=== PATIENT | female | born 1950 | race Caucasian/White ===

== ENCOUNTER 2017-02-21 11:47 | Observation (INO) | payer MEDICARE ==
[2017-02-21] MEDS ORDERED: ONDANSETRON HCL/PF 2 MG/ML VIAL IV ONE ×2 (12:55→17:27)
--- NOTE | 2017-02-21 12:58 | ERNOTE ---
Medical Problem HPI - Narrative Date of Service: 02/21/17 - General Chief Complaint: Nausea/Vomiting Time Seen by Provider: 02/21/17 12:37 Source: patient Exam Limitations: no limitations - Immun/Allergies/Home Medications Immunizations: IMMUNIZATION HX Immunizations Up to Date Yes History of Influenza Vaccine Yes Hx Pneumococcal Vaccination Yes Allergies/Adverse Reactions: Allergies venom-honey bee [bee venom (honey bee)] Allergy (Mild, Verified 02/21/17 12:03) Hives morphine Adverse Reaction (Intermediate, Verified 02/21/17 12:03) HALLUCINATIONS sulfadiazine [Sulfadiazine] Adverse Reaction (Mild, Verified 02/21/17 12:03) rash Home Medications: HOME MEDICATIONS Citalopram Hydrobromide [Celexa] 40 mg PO HS 09/27/12 [Last Taken 10/21/13] traMADol HCL [Ultram] 50 mg PO TID PRN 06/14/14 [Last Taken Unknown] Levothyroxine Sodium [Synthroid] 50 mcg PO DAILY 04/26/15 [Last Taken Unknown] Cyclosporine [Restasis Multidose] 1 drop OP DAILY 01/17/17 [Last Taken Unknown] - History of Present History Narrative: Pt is a 66 year old with complaints of nausea and diarrhea. Pt states Friday she was up cleaning the house and all of the sudden felt dizzy and nauseated then laid down and felt better. Pt then continued to clean and started feeling sick again. She states yesterday she felt fine but at 3:40am she started dry heaving and has had "alot alot alot of diarrhea." Pt states she had a surgery to where she cannot vomit. Pt states hx of bowel obstruction which have required surgical intervention, but this does not feel like that. Denies any recent travel or sick contacts, dysuria, blood in stool or urine. Endorses epigastric and lower abdominal pain- no radiation present, and chills. Has not taken anything for symptoms prior to arrival and nothing makes symptoms better or worse. Date (Duration): 02/19/17 Time (Timing): 13:00 Timing: intermittent Severity: moderate Review of Systems - Review of Systems Constitutional: Present: fever, chills, weakness, fatigue. Absent: recent illness, diaphoresis, weight loss Respiratory: Absent: shortness of breath, cough Cardiology: Absent: chest pain, palpitations, syncope, edema Gastrointestinal/Abdominal: Present: nausea, diarrhea, abdominal pain, eating less. Absent: vomiting, constipation Genitourinary: Absent: frequency, pain, dysuria, hematuria Neurological: Present: dizziness/light-headedness. Absent: headache, weakness, numbness Endocrine: Present: no symptoms reported - Patient's Past Medical History Patient History - Medical: Anxiety, Arthritis, Depression, Fibromyalgia, Hypothyroidism, Osteoarthritis, Other Patient History - Cardiac/Respiratory: No pertinent hx Patient History - Cancer: No Hx of Cancer Patient History - Surgical Procedures: Appendectomy, Cholecystectomy, Hysterectomy, Tubal Ligation, Other, Orthopedic Patient History - Other: None - Family History Mother Family History - Medical: , Diabetes Type 2, Other Family History - Cardiac/Respiratory: No pertinent hx Family History - Cancer: No pertinent family hx Father Family History - Medical: Alcohol Abuse Family History - Cardiac/Respiratory: Myocardial Infarction Family History - Cancer: No pertinent family hx - Social History Living Situations: home Abuse History: No History of abuse Psych History: Hx of Anxiety, Hx of Depression, Current tx/ever been on anti- depressants or anti-anxiety meds Smoking Status: Former smoker Have you smoked in the past 12 months: No Do you dip or chew tobacco: No Alcohol Use: rarely Drug Use: none - Immunizations Immunizations Up to Date: Yes Hx Pneumococcal Vaccination: Yes History of Influenza Vaccine: Yes Physical Exam - Physical Exam General Appearance: Present: wd/wn, alert, no apparent distress Respiratory: Present: no respiratory distress, normal breath sounds, no accessory muscle use, chest nontender, lungs clear Cardiovascular/Chest: Present: regular rate, rhythm, no murmur, normal peripheral pulses Gastrointestinal/Abdominal: Present: normal bowel sounds, nondistended, soft, tenderness - epigastric and mid-lower abdominal pain Neurological Exam: Present: alert, oriented, normal mood/affect, no motor/ sensory deficits Skin Exam: Present: normal color, warm/dry ED Progress - Results and Orders Patient's Lab Results:: I have reviewed the patient's lab results. - Vital Signs Patient's Vital Signs:: I have reviewed the patient's vital signs. Vital Signs: Vital Signs 02/21/17 02/21/17 11:56 12:52 Temperature 37.3 C Pulse Rate 95 90 Respiratory 18 Rate Blood Pressure 141/79 134/81 O2 Sat by Pulse 96 98 Oximetry - EKG EKG: NSR EKG read: Reviewed by me - X-Ray X-Ray #1 X-Ray: abdomen Interpretation: Reviewed by me X-ray Comments: abnormal but nonspecific bowel gas pattern. Dilated small bowel segments with gas within the colonic segments. - CT/Ultrasound CT/Ultrasound Narrative: Suggestie of partial obstruction of the small bowel, with transition point identified in the right lower quadrant near the small bowel anastomotic site. - Progress/Reassessment Chief Complaint: Nausea/Vomiting Progress:: Improved Plan - Plan Plan: Plan to admit pt to med/surg floor Spoke with Dr. Demarco, ok to admit [address] Soria on-call surgeon and ok to admit 1755 Departure Clinical Impression: Partial obstruction of small intestine - Departure Disposition: [facility] Condition: Good Referrals: Fatou Castillo MD [Primary Care Provider] -
[2017-02-21] MEDS ORDERED: ONDANSETRON HCL/PF 2 MG/ML VIAL ONE ×2 (13:18→17:28)
[2017-02-21 13:22] LABS: Hematocrit 47.2 % (37.0-47.0); Hemoglobin 16.7 gm/dL (12.5-16.0); Mean Cell Volume 91.8 fl (78-100); Mean Corpuscular Hemoglobin 32.5 pg (27-31); Mean Corpuscular Hgb Conc 35.4 g/dl (32-36); Mean Platelet Volume 9.1 fl (6.0-9.5); Neutrophil # 9.9 K/mm3 (1.3-6.0); Neutrophil % 88.1 % (42-75.0); Platelet Count 283 K/mm3 (150-450); Red Blood Count 5.14 M/mm3 (4.2-5.4); White Blood Count 11.2 K/mm3 (4.0-10.5)
[2017-02-21] MEDS ORDERED: NORMAL SALINE 1,000 ML IV ONE ×2 (13:32→15:45)
[2017-02-21 13:39] LABS: Troponin I Less than 0.017 ng/ml (0.00-0.10)
[2017-02-21 13:45] LABS: ALT 55 U/L (19-67); AST 33 U/L (0-48); Albumin * 3.8 gm/dl (3.4-5.0); Alkaline Phosphatase * 90 U/L (50-170); Amylase * 52 U/L (25-115); Anion Gap 14.2 mmol/L (6.8-13.8); BUN/Creatinine Ratio 13.6 (9.0-21.6); Bilirubin, Total 0.6 mg/dL (0.0-1.1); Blood Urea Nitrogen 11 mg/dL (3-23); Calcium * 8.2 mg/dL (7.9-10.9); Carbon Dioxide 26.1 mmol/L (24-32.6); Chloride 103 mmol/L (97-106); Glucose * 161 mg/dL (70-110); Lipase 205 U/L (73-393); Potassium 4.3 mmol/L (3.4-4.6); Sodium 139 mmol/L (132-142); Total Protein 8.1 gm/dL (6.2-8.2)
[2017-02-21 14:00] LABS: Urine Bilirubin Negative (NEGATIVE); Urine Blood Negative /ul (NEGATIVE); Urine Ketone Negative (NEGATIVE); Urine Nitrite Negative (NEGATIVE); Urine Protein 30 mg/dL (NEGATIVE); Urine Specific Gravity 1.015 SP.GR. (1.005-1.010); Urine Urobilinogen Normal (NORMAL); Urine pH 6.5 pH (5.0-7.0)
[2017-02-21 14:07] LABS: Urine Appearance Slightly Cloudy; Urine Bacteria 3+; Urine Color Yellow; Urine RBC None Seen /hpf (0-5); Urine WBC None Seen /hpf (0-5)
[2017-02-21] MEDS ORDERED: DIATRIZOATE MEGLUMINE, SODIUM 30 ML BTL PO ONE (14:19)
[2017-02-21] MEDS ORDERED: DIATRIZOATE MEGLUMINE, SODIUM 30 ML BTL ONE (14:22)
[2017-02-21] MEDS ORDERED: ONDANSETRON HCL/PF 2 MG/ML VIAL IV PRN (18:29)
[2017-02-21] MEDS: CITALOPRAM HYDROBROMIDE 20 MG TABLET PO SCH (21:02)
[2017-02-21] MEDS: traMADol HCL 50 MG TABLET PO PRN (21:03)
--- NOTE | 2017-02-21 21:19 | HP ---
Chief Complaint - Chief Complaint Date of Service: 02/21/17 Time of Service: 20:38 Chief Complaint: "Abdominal Pain, Diarrhea, Dry heaving". Source of HPI- Pt reliable, ERP report, pt's EMR. History of Present Illness: Mrs. Church is a 66-yr-old [facility] pt of Dr. Fatou Castillo with a PMH of:Anxiety, Jimenez's Palsy, Depression, Fibromyalgia, Hypothyroidism, Insomnia, Osteoarthritis and Small Bowel Obstruction. Pt states that on Sunday 02/19, she begun feeling ill. She felt nauseated and dizzy. She rested most of the day and thought she felt better. Then on around 4.00 am, she felt nauseated , begun dry heaving and had several bouts of diarrhea. The symptoms continued until 0900 am when she finally chose to come to the ED. She had the accompanying symptom of lower abdominal pain. She denies fevers and chills. She has had numerous abdominal surgeries involving: cholecystectomy,Appendectomy, Hysterectomy and tubal ligation. 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 At the ED today, the abdominal CT showed: Partial Small bowel obstruction.Lab studies: WBC 11,200 with a LT shift. She states that has had 4 prior hospitalizations for small bowel obstructions but the last 2 were at [facility] and she was managed conservatively. ERP consulted the Surgeon-Dr. Soria and he plans to evaluate pt in am. She will be admitted for PSBO. - Patient's Past Medical History Patient History - Medical: Anxiety, Arthritis, Depression, Fibromyalgia, Hypothyroidism, Osteoarthritis, Other Patient History - Cardiac/Respiratory: No pertinent hx Patient History - Cancer: No Hx of Cancer Patient History - Surgical Procedures: Appendectomy, Cholecystectomy, Hysterectomy, Tubal Ligation, Other, Orthopedic Patient History - Other: None - Family History Mother Family History - Medical: , Alcohol Abuse, Diabetes Type 2, Other Family History - Cardiac/Respiratory: No pertinent hx Family History - Cancer: No pertinent family hx Father Family History - Medical: Alcohol Abuse Family History - Cardiac/Respiratory: Myocardial Infarction Family History - Cancer: No pertinent family hx - Social History Living Situations: home Abuse History: No History of abuse Psych History: Hx of Anxiety, Hx of Depression, Current tx/ever been on anti- depressants or anti-anxiety meds Smoking Status: Former smoker Have you smoked in the past 12 months: No Do you dip or chew tobacco: No Patient requests Smoking Cessation Consult: No Initiate information on Smoking Cessation: No Alcohol Use: rarely Drug Use: none - Immunizations Immunizations Up to Date: Yes Hx Pneumococcal Vaccination: Yes History of Influenza Vaccine: Yes Review Of Systems (GEN) - Review of Systems Generalized/Overall Review: Present: Diaphoresis. Absent: Weakness, Chills, Fever, Malaise, Fatigue EENTM: Absent: Eye Pain, Blurred Vision, Nose Congestion, Throat Swelling Respiratory: Absent: Cough, Shortness of Breath, Orthopnea Cardiac: Absent: Chest Pain, Edema, Palpitations, Syncope Abdominal: Present: Nausea, Vomiting, Abdominal Pain, Diarrhea. Absent: Hematemesis, Constipation, Melena, Bright blood from rectum Genitourinary: Absent: Burning, Itching, Urgency, Frequency Musculoskeletal: Absent: Joint Pain, Back Pain, Joint Swelling Neurological: Absent: Headache, Anxiety, Depressed, Numbness Skin: Absent: Dryness, Lesions Endocrine: Absent: Intolerance to Cold, Increased Hunger, Increased Thirst Misc: All systems neg except as marked Allergies/Adverse Reactions: Allergies Allergy/AdvReac Type Severity Reaction Status Date / Time venom-honey bee Allergy Mild Hives Verified 02/21/17 12:03 [bee venom (honey bee)] morphine AdvReac Intermediate HALLUCINATI Verified 02/21/17 12:03 ONS sulfadiazine [Sulfadiazine] AdvReac Mild rash Verified 02/21/17 12:03 Home Medications: HOME MEDICATIONS Citalopram Hydrobromide [Celexa] 40 mg PO HS 09/27/12 [Last Taken 10/21/13] traMADol HCL [Ultram] 50 mg PO TID PRN 06/14/14 [Last Taken Unknown] Levothyroxine Sodium [Synthroid] 50 mcg PO DAILY 04/26/15 [Last Taken Unknown] Cyclosporine [Restasis Multidose] 1 drop OP DAILY 01/17/17 [Last Taken Unknown] Exam - Exam Vital Signs: Vital Signs - Last Taken Temp 36.9 C 02/21/17 17:57 Pulse 80 02/21/17 18:45 Resp 18 02/21/17 18:45 BP 146/81 02/21/17 18:45 Pulse Ox 98 02/21/17 18:45 Constitutional: Present: Alert, Oriented x3, Cooperative, No distress ENT Exam: Present: normal ENT inspection, dry mucous membranes. Absent: nasal drainage, pharyngeal erythema Eye Exam: bilateral eye: normal inspection, PERRL Neck: Present: non-tender, full range of motion, supple Back Exam: Present: normal inspection, no CVA tenderness Breasts: Present: Exam deferred Respiratory: Present: No rales, No wheezing Cardiovascular/Chest: Present: normal peripheral pulses, regular rate, rhythm, no chest tenderness Abdomen: Present: Normal bowel sounds, soft, nontender, tender - Lower Abdomen. /Rectal: Present: Exam deferred Extremity: Present: normal range of motion, non-tender, normal inspection Skin Exam: Present: warm/dry, no cyanosis Lymphatic: Present: no adenopathy Neurologic: Present: alert, normal mood/affect, oriented x 3 Appearance: Present: appropriate appearance, appropriate insight Eye contact: Present: cooperative, good eye contact, normal speech Thoughts: Present: normal thought pattern, no apparent hallucination Diagnostic Studies: Laboratory Results WBC 11.2 K/mm3 (4.0-10.5) H 02/21/17 13:15 RBC 5.14 M/mm3 (4.2-5.4) 02/21/17 13:15 Hgb 16.7 gm/dL (12.5-16.0) H 02/21/17 13:15 Hct 47.2 % (37.0-47.0) H 02/21/17 13:15 MCV 91.8 fl (78-100) 02/21/17 13:15 MCH 32.5 pg (27-31) H 02/21/17 13:15 MCHC 35.4 g/dl (32-36) 02/21/17 13:15 RDW 13.0 % (11.5-14.0) 02/21/17 13:15 Plt Count 283 K/mm3 (150-450) 02/21/17 13:15 MPV 9.1 fl (6.0-9.5) 02/21/17 13:15 Immature Gran % (Auto) 0.40 % (0.001-0.429) 02/21/17 13:15 Immature Gran # (Auto) 0.04 K/mm3 (0.000-0.0310) H 02/21/17 13:15 Neutrophils % 88.1 % (42-75.0) H 02/21/17 13:15 Lymphocytes % 7.3 % (20-51) L 02/21/17 13:15 Monocytes % 3.6 % (0.0-9) 02/21/17 13:15 Eosinophils % 0.3 % (0.0-3.0) 02/21/17 13:15 Basophils % 0.3 % (0.0-1.0) 02/21/17 13:15 Nucleated RBC % 0.0 k/mm3 (0-1) 02/21/17 13:15 Neutrophils # 9.9 K/mm3 (1.3-6.0) H 02/21/17 13:15 Lymphocytes # 0.8 k/mm3 (1.5-3.5) L 02/21/17 13:15 Monocytes # 0.4 k/mm3 (0.0-1.0) 02/21/17 13:15 Eosinophils # 0.0 k/mm3 (0.0-0.7) 02/21/17 13:15 Absolute Basophils 0.0 k/mm3 (0.0-0.1) 02/21/17 13:15 Sodium 139 mmol/L (132-142) 02/21/17 13:15 Plasma Sodium 140 mmol/L (130-142) 02/21/17 13:15 Potassium 4.3 mmol/L (3.4-4.6) 02/21/17 13:15 Chloride 103 mmol/L (97-106) 02/21/17 13:15 Carbon Dioxide 26.1 mmol/L (24-32.6) 02/21/17 13:15 Anion Gap 14.2 mmol/L (6.8-13.8) H 02/21/17 13:15 BUN 11 mg/dL (3-23) 02/21/17 13:15 Creatinine 0.81 mg/dL (0.4-1.4) 02/21/17 13:15 Est GFR (Non-Af Amer) 75 mL/min (60-130) 02/21/17 13:15 BUN/Creatinine Ratio 13.6 (9.0-21.6) 02/21/17 13:15 Random Glucose 161 mg/dL (70-110) H 02/21/17 13:15 Calcium 8.2 mg/dL (7.9-10.9) 02/21/17 13:15 Calcium Adj for Albumin 8.0 mg/dL (8.4-10.2) L 02/21/17 13:15 Total Bilirubin 0.6 mg/dL (0.0-1.1) 02/21/17 13:15 AST 33 U/L (0-48) 02/21/17 13:15 ALT 55 U/L (19-67) 02/21/17 13:15 Alkaline Phosphatase 90 U/L (50-170) 02/21/17 13:15 Troponin I Less than 0.017 ng/ml (0.00-0.10) 02/21/17 13:15 Total Protein 8.1 gm/dL (6.2-8.2) 02/21/17 13:15 Albumin 3.8 gm/dl (3.4-5.0) 02/21/17 13:15 Amylase 52 U/L (25-115) 02/21/17 13:15 Lipase 205 U/L (73-393) 02/21/17 13:15 Urine Color Yellow 02/21/17 13:47 Urine Appearance Slightly cloudy 02/21/17 13:47 Urine pH 6.5 pH (5.0-7.0) 02/21/17 13:47 Ur Specific [place] 1.015 SP.GR. (1.005-1.010) 02/21/17 13:47 Urine Protein 30 mg/dL (NEGATIVE) H 02/21/17 13:47 Urine Glucose (UA) Negative mg/dL (NEGATIVE) 02/21/17 13:47 Urine Ketones Negative mg/dL (NEGATIVE) 02/21/17 13:47 Urine Blood Negative /ul (NEGATIVE) 02/21/17 13:47 Urine Nitrate Negative (NEGATIVE) 02/21/17 13:47 Urine Bilirubin Negative mg/dl (NEGATIVE) 02/21/17 13:47 Prot Sulfosalicylic Acd Negative mg/dL (0) 02/21/17 13:47 Urine Urobilinogen Normal EU/dl (NORMAL) 02/21/17 13:47 Ur Leukocyte Esterase Negative /ul (NEGATIVE) 02/21/17 13:47 Urine RBC None seen /hpf (0-5) 02/21/17 13:47 Urine WBC None seen /hpf (0-5) 02/21/17 13:47 Ur Epithelial Cells 10-25 /hpf (0-5) H 02/21/17 13:47 Urine Bacteria 3+ (NONE) H 02/21/17 13:47 Urine Culture Comments No culture indicated 02/21/17 13:47 Stl C.difficile Tox A&B Negative (Negative) 02/21/17 15:39 Assessment/Plan - Procedures Results: Pt is a 66-yr-old with: 1.) Partial Small Bowel Obstruction- Pt abdominal CT showed PSBO. Surgery consulted on pt's case and will evaluate in am.No fevers, V.S stable, no severe or rebound abdominal tenderness. Will pursue non-operative management for now with: NPO to limit bowel distention, IVF hydration, Pain Mgt, and antiemetics. Will hold off NG tube placement at this time due to Hx of [place] fundoplication unless the symptoms of n/v seem to worsen. Monitor for fevers, leukocytosis, tachycardia and worsening abdominal pain. 2.) Chronic Stable Conditions: Anxiety, Jimenez's Palsy Depression Fibromyalgia Hypothyroidism Insomnia Osteoarthritis - Assessment/Plan (1) Partial small bowel obstruction Problem: Acute (2) Anxiety Problem: Chronic (3) Depression Problem: Chronic (4) Hypothyroidism Problem: Chronic (5) Fibromyalgia Problem: Chronic
[2017-02-22] MEDS ORDERED: NORMAL SALINE 1,000 ML IV PRN (05:34)
[2017-02-22 05:45] LABS: Hematocrit 36.8 % (37.0-47.0); Hemoglobin 13.2 gm/dL (12.5-16.0); Mean Cell Volume 93.2 fl (78-100); Mean Corpuscular Hemoglobin 33.4 pg (27-31); Mean Corpuscular Hgb Conc 35.9 g/dl (32-36); Mean Platelet Volume 9.6 fl (6.0-9.5); Neutrophil # 3.4 K/mm3 (1.3-6.0); Neutrophil % 51.8 % (42-75.0); Platelet Count 207 K/mm3 (150-450); Red Blood Count 3.95 M/mm3 (4.2-5.4); Red Cell Distribution Width 13.2 % (11.5-14.0); White Blood Count 6.5 K/mm3 (4.0-10.5)
[2017-02-22 06:00] LABS: Anion Gap 11.3 mmol/L (6.8-13.8); BUN/Creatinine Ratio 11.3 (9.0-21.6); Calcium * 7.6 mg/dL (7.9-10.9); Carbon Dioxide 24.9 mmol/L (24-32.6); Estimated Creat Clear 56.4; Potassium 3.2 mmol/L (3.4-4.6)
--- NOTE | 2017-02-22 06:31 | PN ---
Subjective - Date and Time Seen Date: 02/22/17 Time: 06:29 Subjective Narrative: Pt examined this am. No issues with n/v. Denies abdominal pain. No acute events overnight. Objective - Vitals Vitals: Last Vital Signs Temp 36.8 C 02/22/17 04:24 Pulse 78 02/22/17 04:24 Resp 18 02/22/17 04:24 BP 151/78 02/22/17 04:24 Pulse Ox 92 02/22/17 04:24 - Abnormal Lab Findings Abnormal Lab Findings: Abnormal Lab Results 02/22/17 02/22/17 Range/Units 05:10 05:10 RBC 3.95 L (4.2-5.4) M/mm3 Hct 36.8 L (37.0-47.0) % MCH 33.4 H (27-31) pg MPV 9.6 H (6.0-9.5) fl Monocytes % 9.6 H (0.0-9) % Potassium 3.2 L D (3.4-4.6) mmol/L Chloride 109 H (97-106) mmol/L Random Glucose 127 H (70-110) mg/dL Calcium 7.6 L (7.9-10.9) mg/dL - Exam Constitutional: Present: Alert, Oriented x3, Cooperative, No distress ENT Exam: Present: normal ENT inspection, muffled/hoarse voice Neck: Present: non-tender, full range of motion, supple Breasts: Present: Exam deferred Respiratory: Present: chest non-tender, lungs clear Cardiovascular/Chest: Present: normal peripheral pulses, regular rate, rhythm, no chest tenderness Abdomen: Present: Normal bowel sounds, soft, tender - lower abdomen. Absent: rebound tenderness /Rectal: Present: Exam deferred Extremity: Present: normal range of motion, non-tender, normal inspection Skin Exam: Present: warm/dry, no cyanosis Lymphatic: Present: no adenopathy Neurologic: Present: no motor/sensory deficits, alert, oriented x 3 Appearance: Present: appropriate appearance, appropriate insight Eye contact: Present: cooperative, good eye contact, normal speech Thoughts: Present: no apparent hallucination Assessment/Plan Plan Narrative: Pt is a 66-yr-old with: 1.) Partial Small Bowel Obstruction- Pt abdominal CT showed PSBO. Surgery consulted on pt's case and will evaluate in am.No fevers, V.S stable, no severe or rebound abdominal tenderness. Will pursue non-operative management for now with: NPO to limit bowel distention, IVF hydration, Pain Mgt, and antiemetics. Will hold off NG tube placement at this time due to Hx of [place] fundoplication unless the symptoms of n/v seem to worsen. Monitor for fevers, leukocytosis, tachycardia and worsening abdominal pain. 2.) Chronic Stable Conditions: Anxiety, Jimenez's Palsy Depression Fibromyalgia Hypothyroidism Insomnia Osteoarthritis - Problems/Diagnosis (1) Partial small bowel obstruction Problem: Acute (2) Anxiety Problem: Chronic (3) Depression Problem: Chronic (4) Hypothyroidism Problem: Chronic (5) Fibromyalgia Problem: Chronic
[2017-02-22] MEDS: LEVOTHYROXINE SODIUM 50 MCG TABLET PO SCH (07:10)
[2017-02-22] MEDS ORDERED: POTASSIUM CHLORIDE 40 MEQ in DEXTROSE 5%-NORMAL SALINE 980 ML IV SCH (07:15)
[2017-02-22] MEDS: CYCLOSPORINE OP SCH (09:42)
[2017-02-22] MEDS: traMADol HCL 50 MG TABLET PO PRN (11:23)
--- NOTE | 2017-02-22 13:48 | CONS ---
[facility] - General Date of Service: 02/22/17 Narrative: Pt well known to me. I did a colonoscopy on her recently. She has a storied abdominal surgery history starting when she was 3 months old. Followed by an open cholecystectomy in her early 20s with a bowel injury and then reoperation within a matter of days for gangrene. She has had three operations for adhesive bowel obstructions. Her last two admissions for bowel obstruction resolved with conservative measures. She presented to to the ER yesterday for nausea/vomiting (actually dry heaves since she has had a mirza fundoplication) and copious diarrhea. She is trying clear liquids today and does not have an NG tube. She is complaining of some mild band-like discomfort just above the umbilicus. Source: patient, RN/MD, old records Exam Limitations: no limitations - History of Present Illness Allergies/Adverse Reactions: Allergies venom-honey bee [bee venom (honey bee)] Allergy (Mild, Verified 02/21/17 12:03) Hives morphine Adverse Reaction (Intermediate, Verified 02/21/17 12:03) HALLUCINATIONS sulfadiazine [Sulfadiazine] Adverse Reaction (Mild, Verified 02/21/17 12:03) rash Home Medications: Home Medications Medication Instructions Recorded Last Taken Citalopram Hydrobromide [Celexa] 40 mg PO HS 09/27/12 10/21/13 traMADol HCL [Ultram] 50 mg PO TID PRN 06/14/14 Unknown Levothyroxine Sodium [Synthroid] 50 mcg PO DAILY 04/26/15 Unknown Cyclosporine [Restasis Multidose] 1 drop OP DAILY 01/17/17 Unknown - Patient's Past Medical History Patient History - Medical: Anxiety, Arthritis, Depression, Fibromyalgia, Hypothyroidism, Osteoarthritis, Other Patient History - Cardiac/Respiratory: No pertinent hx Patient History - Cancer: No Hx of Cancer Patient History - Surgical Procedures: Appendectomy, Cholecystectomy, Hysterectomy, Tubal Ligation, Other, Orthopedic Patient History - Other: None - Family History Mother Family History - Medical: , Alcohol Abuse, Diabetes Type 2, Other Family History - Cardiac/Respiratory: No pertinent hx Family History - Cancer: No pertinent family hx Father Family History - Medical: Alcohol Abuse Family History - Cardiac/Respiratory: Myocardial Infarction Family History - Cancer: No pertinent family hx - Social History Living Situations: home Abuse History: No History of abuse Psych History: Hx of Anxiety, Hx of Depression, Current tx/ever been on anti- depressants or anti-anxiety meds Smoking Status: Former smoker Have you smoked in the past 12 months: No Do you dip or chew tobacco: No Patient requests Smoking Cessation Consult: No Initiate information on Smoking Cessation: No Alcohol Use: rarely Drug Use: none - Immunizations Immunizations Up to Date: Yes Hx Pneumococcal Vaccination: Yes History of Influenza Vaccine: Yes Procedures APPLICATION OF SPLINT (05/12/05) COLONOSCOPY (04/09/06) EXCIS KNEE SEMILUN CARTL (07/01/14) INSERT GASTRIC TUBE NEC (12/21/06) INSPECTION OF LOWER INTESTINAL TRACT, ENDO (01/17/17) KNEE ARTHROSCOPY (07/01/14) LOC EXC BONE LES FEMUR (07/01/14) Medications - Medications Current Medications: Current Medications Citalopram Hydrobromide (Celexa) 40 mg PO HS JOVANA Stop: 03/23/17 21:01 Last Admin: 02/21/17 21:02 Dose: 40 mg Levothyroxine Sodium (Synthroid) 50 mcg PO QDAC JOVANA Stop: 03/24/17 07:01 Last Admin: 02/22/17 07:10 Dose: 50 mcg Cyclosporine [ Restasis Multidose] (Nf Med) 1 drop OP DAILY JOVANA Stop: 03/24/17 09:01 Last Admin: 02/22/17 09:42 Dose: Not Given Tramadol HCl (Ultram) 50 mg PO TID PRN PRN Reason: Pain Stop: 03/23/17 20:44 Last Admin: 02/22/17 11:23 Dose: 50 mg Review of Systems - Review of Systems Abdominal: Present: Other - See HPI Misc: All systems neg except as marked Physical Examination - Exam Vital Signs: Vital Signs - Last Taken Temp 36.5 C 02/22/17 12:13 Pulse 60 02/22/17 12:13 Resp 18 02/22/17 12:13 BP 136/67 02/22/17 12:13 Pulse Ox 96 02/22/17 12:13 O2 Oxygen Delivery Method Room Air Constitutional: Present: Alert, Oriented x3, Cooperative, Well developed, Well nourished, No distress ENT Exam: Present: normal ENT inspection Eye Exam: bilateral eye: normal inspection Neck: Present: supple, trachea midline Respiratory: Present: no respiratory distress, no accessory muscle use Abdomen: Present: soft, tender - Mildly tender in a band across the abdomen just above umbilicus, other - Right subcostal scar. Right paramedian scar., hernia - Probable incisional hernia upper abdomen right midline - Results and Findings: Lab/Microbiology results last 24 hrs: Abnormal/Pending Laboratory Last 24 HRS 02/22/17 02/22/17 05:10 05:10 RBC 3.95 L Hct 36.8 L MCH 33.4 H MPV 9.6 H Monocytes % 9.6 H Potassium 3.2 L D Chloride 109 H Random Glucose 127 H Calcium 7.6 L - Assessments/Findings (1) Viral gastroenteritis Diagnosis(s): Gastroenteritis seems to have exacerbated her adhesive disease causing a partial SBO. Should resolve with conservative measures. Will follow along with you and appreciate the consult. Careful inspection of her CT shows a transition point just to the left of the sacral promontory. Problem: Acute
[2017-02-22] MEDS ORDERED: HYDROmorphone HCL 2 MG/ML VIAL IV PRN (13:51)
[2017-02-22] MEDS: RINGER'S SOLUTION,LACTATED 1,000 ML IV PRN ×2 (15:44→23:27)
[2017-02-22] MEDS: CITALOPRAM HYDROBROMIDE 20 MG TABLET PO SCH (21:05)
[2017-02-23 06:18] LABS: Anion Gap 8.5 mmol/L (6.8-13.8); BUN/Creatinine Ratio 8.2 (9.0-21.6); Calcium * 8.3 mg/dL (7.9-10.9); Carbon Dioxide 27.5 mmol/L (24-32.6); Estimated Creat Clear 61.9
[2017-02-23] MEDS: LEVOTHYROXINE SODIUM 50 MCG TABLET PO SCH (07:15)
[2017-02-23] MEDS: RINGER'S SOLUTION,LACTATED 1,000 ML IV PRN ×2 (07:18→15:02)
[2017-02-23] MEDS: CYCLOSPORINE OP SCH (08:56)
[2017-02-23] MEDS: CITALOPRAM HYDROBROMIDE 20 MG TABLET PO SCH (20:20)
--- NOTE | 2017-02-23 23:30 | PN ---
Subjective - Date and Time Seen Date: 02/23/17 Time: 12:24 Subjective Narrative: Carmen reports feeling better. Yesterday afternoon she was feeling sick after trying food. Went back to NPO and has improved. She would like to try liquid diet again. Objective - Vitals Vitals: Last Vital Signs Temp 36.7 C 02/23/17 15:41 Pulse 57 L 02/23/17 15:41 Resp 18 02/23/17 15:41 BP 153/71 02/23/17 15:41 Pulse Ox 97 02/23/17 15:41 - Abnormal Lab Findings Abnormal Lab Findings: Abnormal Lab Results 02/23/17 Range/Units 06:10 Chloride 107 H (97-106) mmol/L BUN/Creatinine Ratio 8.2 L (9.0-21.6) Random Glucose 130 H (70-110) mg/dL - Exam Constitutional: Present: Alert, Oriented x3, Cooperative ENT Exam: Present: hearing grossly normal Respiratory: Present: lungs clear, normal breath sounds Cardiovascular/Chest: Present: regular rate, rhythm, no murmur Abdomen: Present: Normal bowel sounds, soft, nontender, nondistended Skin Exam: Present: normal color, warm/dry, no cyanosis Assessment/Plan - Problems/Diagnosis (1) Partial small bowel obstruction Problem: Acute Narrative: Will advance diet, remove NG if tolerating.
[2017-02-24] MEDS: LEVOTHYROXINE SODIUM 50 MCG TABLET PO SCH (06:25)
[2017-02-24] MEDS: CYCLOSPORINE OP SCH (09:00)
[2017-02-24] MEDS ORDERED: traMADol HCL 50 MG TABLET ONE (12:18)
[2017-02-24 12:33] VITALS: BP 147/69
--- NOTE | 2017-02-24 17:09 | DS ---
(1) Partial small bowel obstruction Problem: Acute Description of Stay: Carmen is a 66 yo female that was admitted for small bowel obstruction. She was made NPO. Within 24 hours she was having bowel movements and passing gas. Her diet was advanced to clears but she felt worse. She was changed back to NPO for another day. She felt better again and continued having bowel movements. Diet was advanced to regular and she tolerated this and was discharged to home. Procedures Performed: none Discharge Disposition: Home self care Disposition: Home self-care Condition: Good Discharge Activity: Activity as tolerated Discharge Diet: General/regular food Referrals: Fatou Castillo MD [Primary Care Provider] - One Week Problem Oriented Discharge Instructions to Patient/Family: Small Bowel Obstruction, [id number] Additional Patient Instructions (free text): Follow up with Dr. Castillo in 1 week. [facility] will call you Friday with appointment. Complete Home Medications List: Complete Home Medication List: Citalopram Hydrobromide [Celexa] 40 mg PO HS 09/27/12 traMADol HCL [Ultram] 100 mg PO Q48H PRN 06/14/14 Levothyroxine Sodium [Synthroid] 50 mcg PO DAILY 04/26/15 Cyclosporine [Restasis Multidose] 1 drop OP DAILY 01/17/17
[2017-02-25] MEDS ORDERED: traMADol HCL 50 MG TABLET PO SCH (09:00)
== END 2017-02-24 18:45 | disposition home or self-care (01) ==
LOC: ER 11:47 → MS 18:00
PROVIDERS: ADMIT Family Medicine; ATTEND Family Medicine
DX: E03.9 Hypothyroidism, unspecified; K56.600 Partial intestinal obstruction, unspecified as to cause; G47.00 Insomnia, unspecified; A08.4 Viral intestinal infection, unspecified; F41.8 Other specified anxiety disorders; Z68.33 Body mass index [BMI] 33.0-33.9, adult; M19.90 Unspecified osteoarthritis, unspecified site; M79.7 Fibromyalgia; G51.0 Bell's palsy
CPT/HCPCS: 36415; 74019; 74177; 80048; 80053; 81001; 82150; 83690; 84484; 85025; 87045; 87046; 87493; 93005; 96365; 96366; 96375; 96376; 99284; G0378; J2405

== ENCOUNTER 2017-04-18 16:12 | Inpatient (IN) | payer MEDICARE ==
[2017-04-18] MEDS ORDERED: NORMAL SALINE 1,000 ML IV ONE (16:33)
[2017-04-18] MEDS ORDERED: HYDROmorphone HCL 1 MG/ML DISP.SYRIN IV ONE ×2 (16:36→17:56)
[2017-04-18] MEDS ORDERED: HYDROmorphone HCL 2 MG/ML VIAL ONE ×2 (16:41→20:08)
--- NOTE | 2017-04-18 16:41 | ERNOTE ---
Abdominal HPI - Narrative Date of Service: 04/18/17 - General Chief Complaint: Abdominal Pain Time Seen by Provider: 04/18/17 16:20 Source: patient Exam Limitations: no limitations - Immun/Allergies/Home Medications Immunizatons: IMMUNIZATION HX Immunizations Up to Date Yes History of Influenza Vaccine Yes Hx Pneumococcal Vaccination Yes Allergies/Adverse Reactions: Allergies venom-honey bee [bee venom (honey bee)] Allergy (Mild, Verified 04/18/17 16:27) Hives morphine Adverse Reaction (Intermediate, Verified 04/18/17 16:27) HALLUCINATIONS sulfadiazine [Sulfadiazine] Adverse Reaction (Mild, Verified 04/18/17 16:27) rash Home Medications: HOME MEDICATIONS Citalopram Hydrobromide [Celexa] 40 mg PO HS 09/27/12 [Last Taken 10/21/13] traMADol HCL [Ultram] 100 mg PO Q48H PRN 06/14/14 [Last Taken Unknown] Levothyroxine Sodium [Synthroid] 50 mcg PO DAILY 04/26/15 [Last Taken Unknown] Cyclosporine [Restasis Multidose] 1 drop OP DAILY 01/17/17 [Last Taken Unknown] - History of Present Illness Narrative: Patient presents to the ED for abdominal pain. This is generalized abdominal pain, feels like prior SBOs. THis has been going on for 3 hours. Pain severe, does not localize. Dry heaves with this. Still having bowel movements. No blood in stool. Nothing seems to make this better or worse. Fairly recent hospitalization for this. Hx of multiple intra abdominal surgeries, Timing: constant Quality: severe Activities at Onset: none Modifying Factors - (Improves): Present: other - nothing Modifying Factors - (Worsens): Present: other - nothing Associated Symptoms: Present: nausea, vomiting. Absent: back pain, chest pain, shortness of breath, swelling/mass in abdomen Prior Abdominal Problems: Present: similar symptoms Prior Treatment: Absent: currently on antibiotics Review of Systems - Review of Systems Constitutional: Absent: fever Respiratory: Absent: shortness of breath Cardiology: Absent: chest pain Gastrointestinal/Abdominal: Present: See HPI Genitourinary: Absent: dysuria Neurological: Absent: weakness All Other Systems: All systems neg except as marked - Patient's Past Medical History Patient History - Medical: Anxiety, Arthritis, Depression, Fibromyalgia, Hypothyroidism, Osteoarthritis, Other Patient History - Cardiac/Respiratory: No pertinent hx Patient History - Cancer: No Hx of Cancer Patient History - Surgical Procedures: Appendectomy, Cholecystectomy, Hysterectomy, Tubal Ligation, Other, Orthopedic Patient History - Other: None - Family History Mother Family History - Medical: , Alcohol Abuse, Diabetes Type 2, Other Family History - Cardiac/Respiratory: No pertinent hx Family History - Cancer: No pertinent family hx Father Family History - Medical: Alcohol Abuse Family History - Cardiac/Respiratory: Myocardial Infarction Family History - Cancer: No pertinent family hx - Social History Abuse History: No History of abuse Psych History: Hx of Anxiety, Hx of Depression, Current tx/ever been on anti- depressants or anti-anxiety meds Smoking Status: Never smoker Alcohol Use: none Drug Use: none - Immunizations Immunizations Up to Date: Yes Hx Pneumococcal Vaccination: Yes History of Influenza Vaccine: Yes Physical Exam - Physical Exam General Appearance: Present: alert Head Exam: Present: normal inspection, no evidence of injury Eye Exam: Normal inspection: bilateral, PERRL: bilateral Ears, Nose, Throat: Present: normal ENT inspection Neck: Present: normal inspection Respiratory: Present: no respiratory distress, normal breath sounds, no accessory muscle use, lungs clear Cardiovascular/Chest: Present: regular rate, rhythm, normal peripheral pulses Gastrointestinal/Abdominal: Present: normal bowel sounds, soft, tenderness, distended, other - diffuse tendnress. No peritoneal signs. Non-surgical abdomen Back Exam: Absent: CVA tenderness (R), CVA tenderness (L) Extremity Exam: Present: normal range of motion Neurological Exam: Present: alert, no motor/sensory deficits Skin Exam: Present: normal color, warm/dry ED Progress - Results and Orders Patient's Lab Results:: I have reviewed the patient's lab results. - Vital Signs Patient's Vital Signs:: I have reviewed the patient's vital signs. Vital Signs: Vital Signs 04/18/17 16:21 Temperature 36.2 C L Pulse Rate 68 Respiratory 18 Rate Blood Pressure 155/92 O2 Sat by Pulse 100 Oximetry - X-Ray X-Ray #1 X-Ray: abdomen Interpretation: Interp. by me X-ray Comments: No real-time radiology reads. Bowel Obstruction. - Progress/Reassessment Chief Complaint: Abdominal Pain Progress Note-Subjective: 04/18/17 17:[address] Soria, he recommends to hold on the CT at this time and treat with NG and admission. Pt agreeable. Dr Soria will consult. D.W Dr Hyde, he will admit. He recommends full admit at this time. Departure Clinical Impression: SBO (small bowel obstruction), Abdominal pain - Departure Disposition: Still a patient Condition: Stable Referrals: Fatou Castillo MD [Primary Care Provider] -
[2017-04-18 17:08] LABS: Albumin * 3.6 gm/dl (3.4-5.0); Anion Gap 16.9 mmol/L (6.8-13.8); BUN/Creatinine Ratio 20.2 (9.0-21.6); Bilirubin, Total 0.3 mg/dL (0.0-1.1); Ca. Corrected For Albumin 9.1 mg/dL (8.4-10.2); Calcium * 9.1 mg/dL (7.9-10.9); Carbon Dioxide 23.9 mmol/L (24-32.6); Potassium 3.8 mmol/L (3.4-4.6)
[2017-04-18 17:14] LABS: Hematocrit 42.6 % (37.0-47.0); Hemoglobin 15.6 gm/dL (12.5-16.0); Mean Cell Volume 88.9 fl (78-100); Mean Corpuscular Hemoglobin 32.6 pg (27-31); Mean Corpuscular Hgb Conc 36.6 g/dl (32-36); Mean Platelet Volume 9.4 fl (6.0-9.5); Neutrophil # 4.9 K/mm3 (1.3-6.0); Neutrophil % 53.5 % (42-75.0); Platelet Count 301 K/mm3 (150-450); Red Blood Count 4.79 M/mm3 (4.2-5.4); Red Cell Distribution Width 12.6 % (11.5-14.0); White Blood Count 9.1 K/mm3 (4.0-10.5)
[2017-04-18 17:39] LABS: Urine Bilirubin Negative (NEGATIVE); Urine Blood Negative /ul (NEGATIVE); Urine Ketone 5 mg/dL (NEGATIVE); Urine Nitrite Negative (NEGATIVE); Urine Protein Negative (NEGATIVE); Urine Specific Gravity 1.015 SP.GR. (1.005-1.010); Urine Urobilinogen Normal (NORMAL)
[2017-04-18 18:05] LABS: Urine Appearance Clear (CLEAR); Urine Bacteria 3+; Urine Color Yellow; Urine Mucus Moderate - 2+; Urine RBC TRACE /hpf (0-5); Urine WBC 0-5 /hpf (0-5); Urine Waxy Cast TRACE /LPF; Urine Yeast TRACE
[2017-04-18] MEDS ORDERED: ONDANSETRON HCL/PF 2 MG/ML VIAL ONE (18:33)
[2017-04-18] MEDS ORDERED: ONDANSETRON HCL/PF 2 MG/ML VIAL IV ONE (18:34)
[2017-04-18] MEDS ORDERED: HYDROmorphone HCL 1 MG/ML DISP.SYRIN IV PRN (19:33)
--- NOTE | 2017-04-18 19:59 | HP ---
Chief Complaint - Chief Complaint Date of Service: 04/18/17 Time of Service: 19:57 Chief Complaint: Abdominal Pain. Source of HPI- Pt; reliable, ERP report History of Present Illness: Mrs. Church is a 66-yr-old W[place] Pt of Dr. Fatou Castillo with a PMH of: Anxiety, Jimenez's Palsy, Depression, Fibromyalgia, Hypothyroidism, Insomnia, Osteoarthritis and Small Bowel Obstruction. Pt states that 3 hours prior to presentation to the Hospital, she developed severe lower abdominal pain that was accompanied by dry heaving. She chose to come to the [facility] ER without waiting as she has hx of SBO and the symptoms were similar. She denies fevers, but has had chills since being in the hospital. Her appetite and bowels movements have been normal until 3 hrs before coming to the hospital. At the ED , Abdominal X-ray had findings concerning for SBO.The surgeon ( Dr. Soria ) was consulted by the ERP on pt's case and he recommended to hold the Abdominal CT scan and for NG tube to be placed in. He will evaluate pt in am. Laboratory studies were mostly unremarkable. During physical exam, she is in moderate distress, retching vigorously and noted to have abdominal guarding. She has had [place] fundoplication. Of note, pt has had numerous abdominal surgeries involving: cholecystectomy,Appendectomy, Hysterectomy and tubal ligation. 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 She has been hospitalized at least 4 times for SBO, but the last two incidences were managed conservatively. She will need to be admitted inpatient for SBO due to complications that can arise involving sepsis, ischemic bowel disease and strangulation, and needs to be monitored closely to ensure there is resolution of the obstruction. . - Patient's Past Medical History Patient History - Medical: Anxiety, Arthritis, Depression, Fibromyalgia, Hypothyroidism, Osteoarthritis, Other Patient History - Cardiac/Respiratory: No pertinent hx Patient History - Cancer: No Hx of Cancer Patient History - Surgical Procedures: Appendectomy, Cholecystectomy, Hysterectomy, Tubal Ligation, Other - [place] fundoplication. , Orthopedic Patient History - Other: None LMP (females 10-50): not applicable - total hysterectomy in 1979 - Family History Mother Family History - Medical: , Alcohol Abuse, Diabetes Type 2, Other Family History - Cardiac/Respiratory: No pertinent hx Family History - Cancer: No pertinent family hx Father Family History - Medical: Alcohol Abuse Family History - Cardiac/Respiratory: Myocardial Infarction Family History - Cancer: No pertinent family hx - Social History Living Situations: other Abuse History: No History of abuse Psych History: Hx of Anxiety, Hx of Depression, Current tx/ever been on anti- depressants or anti-anxiety meds Smoking Status: Former smoker Have you smoked in the past 12 months: No Do you dip or chew tobacco: No Patient requests Smoking Cessation Consult: No Initiate information on Smoking Cessation: No Alcohol Use: none Drug Use: none - Immunizations Immunizations Up to Date: Yes Hx Pneumococcal Vaccination: Yes History of Influenza Vaccine: Yes Review Of Systems (GEN) - Review of Systems Generalized/Overall Review: Present: Chills, Malaise, Diaphoresis. Absent: Fever, Fatigue EENTM: Absent: Eye Pain, Blurred Vision, Double Vision Respiratory: Absent: Cough, Shortness of Breath, Orthopnea Cardiac: Absent: Chest Pain, Edema, Palpitations Abdominal: Present: Nausea, Abdominal Pain. Absent: Vomiting, Hematemesis, Constipation, Bright blood from rectum Genitourinary: Absent: Burning, Itching, Urgency, Frequency Musculoskeletal: Present: Joint Pain - Knees from athritis Neurological: Absent: Headache, Anxiety, Depressed Skin: Absent: Dryness, Lesions, Lumps, Rash Endocrine: Absent: Intolerance to Cold, Flushing, Increased Thirst Misc: All systems neg except as marked Immunizations: IMMUNIZATION HX Immunizations Up to Date Yes History of Influenza Vaccine Yes Hx Pneumococcal Vaccination Yes Allergies/Adverse Reactions: Allergies Allergy/AdvReac Type Severity Reaction Status Date / Time venom-honey bee Allergy Mild Hives Verified 04/18/17 16:27 [bee venom (honey bee)] morphine AdvReac Intermediate HALLUCINATI Verified 04/18/17 16:27 ONS sulfadiazine [Sulfadiazine] AdvReac Mild rash Verified 04/18/17 16:27 Home Medications: HOME MEDICATIONS Citalopram Hydrobromide [Celexa] 40 mg PO DAILY 09/27/12 [Last Taken 04/18/17 08 :00] traMADol HCL [Ultram] 100 mg PO Q48H PRN 06/14/14 [Last Taken 04/17/17 14:00] Levothyroxine Sodium [Synthroid] 50 mcg PO DAILY 04/26/15 [Last Taken 04/18/17 08:00] Cyclosporine [Restasis Multidose] 1 drop OP DAILY 01/17/17 [Last Taken 04/18/17 08:00] Exam - Exam Vital Signs: Vital Signs - Last Taken Temp 36.0 C L 04/18/17 18:40 Pulse 71 04/18/17 18:40 Resp 18 04/18/17 18:40 BP 129/95 04/18/17 18:09 Pulse Ox 96 04/18/17 18:09 Constitutional: Present: Alert, Oriented x3, Moderate distress ENT Exam: Present: normal ENT inspection, dry mucous membranes Eye Exam: bilateral eye: normal inspection, PERRL Neck: Present: non-tender, full range of motion, supple Back Exam: Present: normal inspection Breasts: Present: Exam deferred Respiratory: Present: no accessory muscle use, No rales, No wheezing Cardiovascular/Chest: Present: normal peripheral pulses, regular rate, rhythm, no chest tenderness Abdomen: Present: Normal bowel sounds, tender - Lower abdomen, guarding, firm /Rectal: Present: Exam deferred Extremity: Present: normal range of motion, non-tender, normal inspection, no pedal edema Skin Exam: Present: warm/dry Lymphatic: Present: no adenopathy Neurologic: Present: alert, oriented x 3 Appearance: Present: appropriate appearance, appropriate insight Eye contact: Present: cooperative, good eye contact, normal speech Thoughts: Present: normal thought pattern, no apparent hallucination Diagnostic Studies: Laboratory Results WBC 9.1 K/mm3 (4.0-10.5) 04/18/17 16:53 RBC 4.79 M/mm3 (4.2-5.4) 04/18/17 16:53 Hgb 15.6 gm/dL (12.5-16.0) 04/18/17 16:53 Hct 42.6 % (37.0-47.0) 04/18/17 16:53 MCV 88.9 fl (78-100) 04/18/17 16:53 MCH 32.6 pg (27-31) H 04/18/17 16:53 MCHC 36.6 g/dl (32-36) H 04/18/17 16:53 RDW 12.6 % (11.5-14.0) 04/18/17 16:53 Plt Count 301 K/mm3 (150-450) 04/18/17 16:53 MPV 9.4 fl (6.0-9.5) 04/18/17 16:53 Immature Gran % (Auto) 0.20 % (0.001-0.429) 04/18/17 16:53 Immature Gran # (Auto) 0.02 K/mm3 (0.000-0.0310) 04/18/17 16:53 Neutrophils % 53.5 % (42-75.0) 04/18/17 16:53 Lymphocytes % 35.9 % (20-51) 04/18/17 16:53 Monocytes % 7.6 % (0.0-9) 04/18/17 16:53 Eosinophils % 2.0 % (0.0-3.0) 04/18/17 16:53 Basophils % 0.8 % (0.0-1.0) 04/18/17 16:53 Nucleated RBC % 0.0 k/mm3 (0-1) 04/18/17 16:53 Neutrophils # 4.9 K/mm3 (1.3-6.0) 04/18/17 16:53 Lymphocytes # 3.27 k/mm3 (1.5-3.5) 04/18/17 16:53 Monocytes # 0.7 k/mm3 (0.0-1.0) 04/18/17 16:53 Eosinophils # 0.2 k/mm3 (0.0-0.7) 04/18/17 16:53 Absolute Basophils 0.1 k/mm3 (0.0-0.1) 04/18/17 16:53 Sodium 139 mmol/L (132-142) 04/18/17 16:53 Plasma Sodium 140 mmol/L (130-142) 04/18/17 16:53 Potassium 3.8 mmol/L (3.4-4.6) 04/18/17 16:53 Chloride 102 mmol/L (97-106) 04/18/17 16:53 Carbon Dioxide 23.9 mmol/L (24-32.6) L 04/18/17 16:53 Anion Gap 16.9 mmol/L (6.8-13.8) H 04/18/17 16:53 BUN 17 mg/dL (3-23) D 04/18/17 16:53 Creatinine 0.84 mg/dL (0.4-1.4) 04/18/17 16:53 Est GFR (Non-Af Amer) 72 mL/min (60-130) 04/18/17 16:53 BUN/Creatinine Ratio 20.2 (9.0-21.6) 04/18/17 16:53 Random Glucose 171 mg/dL (70-110) H 04/18/17 16:53 Calcium 9.1 mg/dL (7.9-10.9) 04/18/17 16:53 Calcium Adj for Albumin 9.1 mg/dL (8.4-10.2) 04/18/17 16:53 Total Bilirubin 0.3 mg/dL (0.0-1.1) 04/18/17 16:53 AST 31 U/L (0-48) 04/18/17 16:53 ALT 51 U/L (19-67) 04/18/17 16:53 Alkaline Phosphatase 76 U/L (50-170) 04/18/17 16:53 Total Protein 8.0 gm/dL (6.2-8.2) 04/18/17 16:53 Albumin 3.6 gm/dl (3.4-5.0) 04/18/17 16:53 Lipase 316 U/L (73-393) 04/18/17 16:53 Urine Color Yellow 04/18/17 16:49 Urine Appearance Clear (CLEAR) 04/18/17 16:49 Urine pH 8.0 pH (5.0-7.0) H 04/18/17 16:49 Ur Specific [place] 1.015 SP.GR. (1.005-1.010) 04/18/17 16:49 Urine Protein Negative mg/dL (NEGATIVE) 04/18/17 16:49 Urine Glucose (UA) Negative mg/dL (NEGATIVE) 04/18/17 16:49 Urine Ketones 5 mg/dL (NEGATIVE) 04/18/17 16:49 Urine Blood Negative /ul (NEGATIVE) 04/18/17 16:49 Urine Nitrate Negative (NEGATIVE) 04/18/17 16:49 Urine Bilirubin Negative mg/dl (NEGATIVE) 04/18/17 16:49 Urine Urobilinogen Normal EU/dl (NORMAL) 04/18/17 16:49 Ur Leukocyte Esterase Negative /ul (NEGATIVE) 04/18/17 16:49 Urine RBC Trace /hpf (0-5) 04/18/17 16:49 Urine WBC 0-5 /hpf (0-5) 04/18/17 16:49 Ur Epithelial Cells >25 /hpf (0-5) H 04/18/17 16:49 Urine Bacteria 3+ (NONE) H 04/18/17 16:49 Waxy Casts Trace /LPF (NONE) 04/18/17 16:49 Urine Mucus Moderate - 2+ (NONE) H 04/18/17 16:49 Urine Yeast Trace (NONE) 04/18/17 16:49 Urine Culture Comments No culture indicated 04/18/17 16:49 Assessment/Plan - Assessment/Plan (1) SBO (small bowel obstruction) Assessment: Surgery consulted on pt's case and will evaluate in am. No fevers, V.S stable and no severe rebound tenderness. Will pursue non-operative management for now with: NG to LIS, IVF & Electrolyte replacement, NPO to limit bowel distention, Pain Mgt, and antiemetics. Monitor for fevers, leukocytosis, tachycardia and worsening abdominal pain. Will hold PO meds. Labs in am. Problem: Acute (2) Anxiety Problem: Chronic (3) Depression Problem: Chronic (4) Fibromyalgia Problem: Chronic (5) Jimenez's palsy Problem: Chronic (6) Hypothyroidism Problem: Chronic
[2017-04-18] MEDS ORDERED: PROMETHAZINE HCL 12.5 MG in DEXTROSE 5 % IN WATER 50 ML IV PRN ×2 (20:11)
[2017-04-18] MEDS: ONDANSETRON HCL/PF 2 MG/ML VIAL IV PRN (21:29)
[2017-04-18] MEDS: POTASSIUM CHLORIDE 20 MEQ in DEXTROSE 5%-NORMAL SALINE 990 ML IV SCH (22:23)
[2017-04-18] MEDS: HEPARIN SODIUM,PORCINE 5,000 UNITS/ML VIAL SC SCH (22:35)
[2017-04-18] MEDS: HYDROmorphone HCL 2 MG/ML VIAL IV PRN (22:58)
[2017-04-19] MEDS: ONDANSETRON HCL/PF 2 MG/ML VIAL IV PRN ×2 (01:41→05:46)
[2017-04-19] MEDS: HYDROmorphone HCL 2 MG/ML VIAL IV PRN ×8 (01:42→23:28)
--- NOTE | 2017-04-19 05:30 | PN ---
Subjective - Date and Time Seen Date: 04/19/17 Time: 06:15 Subjective Narrative: Pt seen this am. Abdominal pain and nausea is well controlled with prn dilaudid and Zofran. Had NG feculent residual of 300 ml. No other issues overnight. Objective - Vitals Vitals: Last Vital Signs Temp 37.2 C 04/19/17 02:45 Pulse 92 04/19/17 02:45 Resp 18 04/19/17 02:45 BP 132/81 04/19/17 02:45 Pulse Ox 96 04/19/17 02:45 - Exam Constitutional: Present: Alert, Oriented x3, Cooperative, No distress ENT Exam: Present: normal ENT inspection Neck: Present: non-tender, full range of motion, supple Breasts: Present: Exam deferred Respiratory: Present: No rales, No wheezing Cardiovascular/Chest: Present: normal peripheral pulses, regular rate, rhythm, no chest tenderness Abdomen: Present: Normal bowel sounds, soft, nondistended, tender - RLQ/RUQ, guarding /Rectal: Present: Exam deferred Extremity: Present: normal range of motion, non-tender, normal inspection, no pedal edema Skin Exam: Present: warm/dry, no cyanosis Lymphatic: Present: no adenopathy Neurologic: Present: no motor/sensory deficits, alert, normal mood/affect Appearance: Present: appropriate appearance, appropriate insight Eye contact: Present: cooperative, good eye contact, normal speech Thoughts: Present: normal thought pattern, no apparent hallucination Assessment/Plan - Problems/Diagnosis (1) SBO (small bowel obstruction) Problem: Acute Narrative: Surgery consulted on pt's case and will evaluate in am. No fevers, V.S stable and no severe rebound tenderness. Will pursue non-operative management for now with: NG to LIS, IVF & Electrolyte replacement, NPO to limit bowel distention, Pain Mgt, and antiemetics. Monitor for fevers, leukocytosis, tachycardia and worsening abdominal pain. Will hold PO meds. Labs in am. 04/19- Still having abd pain, NG residual 300ml. (2) Anxiety Problem: Chronic (3) Depression Problem: Chronic (4) Fibromyalgia Problem: Chronic (5) Jimenez's palsy Problem: Chronic (6) Hypothyroidism Problem: Chronic
[2017-04-19] MEDS: POTASSIUM CHLORIDE 20 MEQ in DEXTROSE 5%-NORMAL SALINE 990 ML IV SCH ×4 (05:46→23:58)
[2017-04-19 05:50] LABS: Hematocrit 39.9 % (37.0-47.0); Hemoglobin 14.2 gm/dL (12.5-16.0); Mean Cell Volume 92.1 fl (78-100); Mean Corpuscular Hemoglobin 32.8 pg (27-31); Mean Corpuscular Hgb Conc 35.6 g/dl (32-36); Mean Platelet Volume 9.3 fl (6.0-9.5); Neutrophil # 7.7 K/mm3 (1.3-6.0); Neutrophil % 69.7 % (42-75.0); Platelet Count 236 K/mm3 (150-450); Red Blood Count 4.33 M/mm3 (4.2-5.4); Red Cell Distribution Width 13.2 % (11.5-14.0); White Blood Count 11.1 K/mm3 (4.0-10.5)
[2017-04-19 06:06] LABS: Albumin * 3.1 gm/dl (3.4-5.0); Anion Gap 11.4 mmol/L (6.8-13.8); BUN/Creatinine Ratio 14.3 (9.0-21.6); Bilirubin, Total 0.4 mg/dL (0.0-1.1); Ca. Corrected For Albumin 8.3 mg/dL (8.4-10.2); Calcium * 7.9 mg/dL (7.9-10.9); Carbon Dioxide 23.9 mmol/L (24-32.6); Potassium 4.3 mmol/L (3.4-4.6); Total Protein 7.4 gm/dL (6.2-8.2)
--- NOTE | 2017-04-19 08:00 | PN ---
Progess Note - Interim Date: 04/19/17 Time: 08:00 Narrative: 04/19/17 08:00 Leukocytosis with neutro-69.7%- reactive vs infection. T max of 37.2 . Will monitor.
[2017-04-19] MEDS: HEPARIN SODIUM,PORCINE 5,000 UNITS/ML VIAL SC SCH ×2 (08:46→21:03)
--- NOTE | 2017-04-19 12:32 | CONS ---
[facility] - General Date of Service: 04/19/17 Narrative: Pt well known to me. See my previous consultation for her storied history of abdominal surgery. She presented in the ER yesterday fairly early into the process of a repeat partial small bowel obstruction having undergone the same problem in the recent past. That previous episode resolved with conservative measures and without an NG which she was adamant about not receiving. This time however the pain was worse and readily accepted an NG placement. Yesterdays AXR showed a possible early PSBO. She is having ongoing pain today. Denies flatus/ BM. Todays AXR has not been read by radiologist but to my reading shows the small bowel to be considerably less distended with most of the air having moved to the large intestine. Source: patient, RN/MD, old records Exam Limitations: no limitations - History of Present Illness Allergies/Adverse Reactions: Allergies venom-honey bee [bee venom (honey bee)] Allergy (Mild, Verified 04/18/17 16:27) Hives morphine Adverse Reaction (Intermediate, Verified 04/18/17 16:27) HALLUCINATIONS sulfadiazine [Sulfadiazine] Adverse Reaction (Mild, Verified 04/18/17 16:27) rash Home Medications: Home Medications Medication Instructions Recorded Last Taken Citalopram Hydrobromide [Celexa] 40 mg PO DAILY 09/27/12 04/18/17 08:00 traMADol HCL [Ultram] 100 mg PO Q48H PRN 06/14/14 04/17/17 14:00 Levothyroxine Sodium [Synthroid] 50 mcg PO DAILY 04/26/15 04/18/17 08:00 Cyclosporine [Restasis Multidose] 1 drop OP DAILY 01/17/17 04/18/17 08:00 - Patient's Past Medical History Patient History - Medical: Anxiety, Arthritis, Depression, Fibromyalgia, Hypothyroidism, Osteoarthritis, Other Patient History - Cardiac/Respiratory: No pertinent hx Patient History - Cancer: No Hx of Cancer Patient History - Surgical Procedures: Appendectomy, Cholecystectomy, Hysterectomy, Tubal Ligation, Other - [place] fundoplication. , Orthopedic Patient History - Other: None LMP (females 10-50): not applicable - total hysterectomy in 1979 - Family History Mother Family History - Medical: , Alcohol Abuse, Diabetes Type 2, Other Family History - Cardiac/Respiratory: No pertinent hx Family History - Cancer: No pertinent family hx Father Family History - Medical: Alcohol Abuse Family History - Cardiac/Respiratory: Myocardial Infarction Family History - Cancer: No pertinent family hx - Social History Living Situations: other Abuse History: No History of abuse Psych History: Hx of Anxiety, Hx of Depression, Current tx/ever been on anti- depressants or anti-anxiety meds Smoking Status: Former smoker Have you smoked in the past 12 months: No Do you dip or chew tobacco: No Patient requests Smoking Cessation Consult: No Initiate information on Smoking Cessation: No Alcohol Use: none Drug Use: none - Immunizations Immunizations Up to Date: Yes Hx Pneumococcal Vaccination: Yes History of Influenza Vaccine: Yes Procedures APPLICATION OF SPLINT (05/12/05) COLONOSCOPY (04/09/06) EXCIS KNEE SEMILUN CARTL (07/01/14) INSERT GASTRIC TUBE NEC (12/21/06) INSPECTION OF LOWER INTESTINAL TRACT, ENDO (01/17/17) KNEE ARTHROSCOPY (07/01/14) LOC EXC BONE LES FEMUR (07/01/14) Medications - Medications Current Medications: Current Medications Heparin Sodium (Porcine) (Heparin Sodium) 5,000 units SC Q12H JOVANA Stop: 05/18/17 21:01 Last Admin: 04/19/17 08:46 Dose: 5,000 units Hydromorphone HCl (Dilaudid) 1 mg IV Q2H PRN PRN Reason: Pain Stop: 05/18/17 20:10 Last Admin: 04/19/17 07:56 Dose: 1 mg Promethazine HCl 12.5 mg/ (Dextrose/Water) 50.5 mls @ 200 mls/hr IV Q4H PRN PRN Reason: Nausea And Vomiting Stop: 05/18/17 20:12 Last Infusion: 04/19/17 09:02 Dose: Infused Potassium Chloride 20 meq/ (Dextrose/Sodium Chloride) 1,000 mls @ 125 mls/hr IV .Q8H JOVANA Stop: 05/18/17 21:01 Last Admin: 04/19/17 05:46 Dose: 125 mls/hr Cyclosporine [ Restasis Multidose] (Nf Med) 1 drop OP DAILY JOVANA Stop: 05/19/17 09:01 Last Admin: 04/19/17 08:46 Dose: Not Given Ondansetron HCl (Zofran) 4 mg IV Q4H PRN PRN Reason: Nausea Stop: 05/18/17 19:34 Last Admin: 04/19/17 05:46 Dose: 4 mg Review of Systems - Review of Systems Abdominal: Present: Nausea, Vomiting, Abdominal Pain Misc: All systems neg except as marked Physical Examination - Exam Vital Signs: Vital Signs - Last Taken Temp 36.4 C L 04/19/17 10:32 Pulse 84 04/19/17 10:32 Resp 16 04/19/17 10:32 BP 144/74 04/19/17 10:32 Pulse Ox 93 04/19/17 10:32 O2 Oxygen Delivery Method Room Air Constitutional: Present: Alert, Oriented x3, Cooperative, Well developed, Well nourished, No distress ENT Exam: Present: other - NG tube present draining bilious succus entericus Eye Exam: bilateral eye: normal inspection Neck: Present: normal inspection, trachea midline Respiratory: Present: no respiratory distress, no accessory muscle use Abdomen: Present: soft, nontender, nondistended, no rebound tenderness. Absent : guarding, rigidity Skin Exam: Present: normal color, warm/dry Neurologic: Present: no motor/sensory deficits Appearance: Present: appropriate insight Eye contact: Present: cooperative, good eye contact Thoughts: Present: normal thought pattern - Results and Findings: Lab/Microbiology results last 24 hrs: Abnormal/Pending Laboratory Last 24 HRS 04/19/17 04/19/17 05:45 05:00 WBC 11.1 H D MCH 32.8 H Neutrophils # 7.7 H Carbon Dioxide 23.9 L Random Glucose 166 H Calcium Adj for Albumin 8.3 L Albumin 3.1 L - Assessments/Findings (1) Partial small bowel obstruction Diagnosis(s): We discussed the tenets of management of PSBO at length and conservative versus surgical therapy. She is comfortable with conservative management unless complications intervene. Will follow. Problem: Acute
[2017-04-19] MEDS: PHENOL 180 SPRAY BTL MM PRN (21:04)
[2017-04-19] MEDS: KETOROLAC TROMETHAMINE 15 MG/ML VIAL IV PRN (23:12)
[2017-04-20] MEDS ORDERED: BENZOCAINE/MENTHOL 16 EACH BOX MM PRN (01:53)
[2017-04-20] MEDS: HYDROmorphone HCL 2 MG/ML VIAL IV PRN ×3 (05:02→17:44)
--- NOTE | 2017-04-20 05:27 | PN ---
Subjective - Date and Time Seen Date: 04/20/17 Time: 05:26 Subjective Narrative: Pt seen this am. Still having residual from the NG and had an output of 300ml. Abdomen feels soft but tender. Denies nausea. Complained of MITTAL but Toradol provided relief. Objective - Vitals Vitals: Last Vital Signs Temp 37.2 C 04/20/17 03:32 Pulse 71 04/20/17 03:32 Resp 18 04/20/17 03:32 BP 136/71 04/20/17 03:32 Pulse Ox 91 04/20/17 03:32 - Abnormal Lab Findings Abnormal Lab Findings: Abnormal Lab Results 04/19/17 04/19/17 Range/Units 05:00 05:45 WBC 11.1 H D (4.0-10.5) K/mm3 MCH 32.8 H (27-31) pg Neutrophils # 7.7 H (1.3-6.0) K/mm3 Carbon Dioxide 23.9 L (24-32.6) mmol/L Random Glucose 166 H (70-110) mg/dL Calcium Adj for Albumin 8.3 L (8.4-10.2) mg/dL Albumin 3.1 L (3.4-5.0) gm/dl - Exam Constitutional: Present: Alert, Oriented x3, Cooperative, No distress ENT Exam: Present: normal ENT inspection, hearing grossly normal Neck: Present: non-tender, full range of motion, supple Breasts: Present: Exam deferred Respiratory: Present: No rales, No wheezing Cardiovascular/Chest: Present: normal peripheral pulses, regular rate, rhythm, no chest tenderness Abdomen: Present: Normal bowel sounds, soft, tender /Rectal: Present: Exam deferred Extremity: Present: normal range of motion, non-tender, normal inspection Skin Exam: Present: warm/dry, no cyanosis Lymphatic: Present: no adenopathy Neurologic: Present: alert, normal mood/affect Appearance: Present: appropriate appearance, appropriate insight Eye contact: Present: cooperative, good eye contact, normal speech Thoughts: Present: normal thought pattern, no apparent hallucination Assessment/Plan - Problems/Diagnosis (1) Partial small bowel obstruction Problem: Acute Narrative: Surgery consulted on pt's case and will evaluate in am. No fevers, V.S stable and no severe rebound tenderness. Will pursue non-operative management for now with: NG to LIS, IVF & Electrolyte replacement, NPO to limit bowel distention, Pain Mgt, and antiemetics. Monitor for fevers, leukocytosis, tachycardia and worsening abdominal pain. Will hold PO meds. Labs in am. 04/19- Still having abd pain, NG residual 300ml. - Seen by Surgery and will continue with conservative mgt. Repeat Abdominal X-ray shows improving PSBO. Surgey will continue to follow and make recommendations. (2) Anxiety Problem: Chronic (3) Depression Problem: Chronic (4) Fibromyalgia Problem: Chronic (5) Jimenez's palsy Problem: Chronic (6) Hypothyroidism Problem: Chronic
[2017-04-20 05:59] LABS: Hematocrit 39.1 % (37.0-47.0); Hemoglobin 13.6 gm/dL (12.5-16.0); Mean Cell Volume 94.7 fl (78-100); Mean Corpuscular Hemoglobin 32.9 pg (27-31); Mean Corpuscular Hgb Conc 34.8 g/dl (32-36); Mean Platelet Volume 9.2 fl (6.0-9.5); Neutrophil # 5.8 K/mm3 (1.3-6.0); Neutrophil % 56.5 % (42-75.0); Platelet Count 222 K/mm3 (150-450); Red Blood Count 4.13 M/mm3 (4.2-5.4); Red Cell Distribution Width 13.3 % (11.5-14.0); White Blood Count 10.2 K/mm3 (4.0-10.5)
[2017-04-20 06:08] LABS: Anion Gap 11.8 mmol/L (6.8-13.8); Calcium * 7.9 mg/dL (7.9-10.9); Carbon Dioxide 24.3 mmol/L (24-32.6); Estimated Creat Clear 64.5; Potassium 4.1 mmol/L (3.4-4.6)
[2017-04-20] MEDS: PHENOL 180 SPRAY BTL MM PRN (08:00)
[2017-04-20] MEDS: HEPARIN SODIUM,PORCINE 5,000 UNITS/ML VIAL SC SCH ×2 (08:01→21:02)
[2017-04-20] MEDS: KETOROLAC TROMETHAMINE 15 MG/ML VIAL IV PRN ×2 (08:01→18:34)
[2017-04-20] MEDS: POTASSIUM CHLORIDE 20 MEQ in DEXTROSE 5%-NORMAL SALINE 990 ML IV SCH ×2 (10:21→21:02)
--- NOTE | 2017-04-20 16:26 | PN ---
Subjective - Date and Time Seen Date: 04/20/17 Time: 16:21 Subjective Narrative: FU PSBO Has started passing flatus but has backslid a bit this afternoon with some increased cramping and pain. WBC noted to be normal. Objective - Review of Systems Abdominal: Reports: Abdominal Pain, Other - cramping Misc: All systems neg except as marked - Vitals Vitals: Last Vital Signs Temp 36.3 C L 04/20/17 11:01 Pulse 61 04/20/17 14:00 Resp 16 04/20/17 11:01 BP 151/67 04/20/17 11:01 Pulse Ox 95 04/20/17 11:01 - Abnormal Lab Findings Abnormal Lab Findings: Abnormal Lab Results 04/20/17 04/20/17 Range/Units 05:00 05:00 RBC 4.13 L (4.2-5.4) M/mm3 MCH 32.9 H (27-31) pg Random Glucose 135 H (70-110) mg/dL - EKG/Xray Findings XRAY: abdomen Interpretation: Reviewed by me - Exam Constitutional: Present: Alert, Oriented x3, Cooperative, Mild distress ENT Exam: Present: other - NG left nares. Bilious succus entericus. Respiratory: Present: no respiratory distress, no accessory muscle use Abdomen: Present: soft, nondistended, no rebound tenderness, tender - lower midline without guarding. Absent: guarding, rigidity Skin Exam: Present: normal color, warm/dry Neurologic: Present: no motor/sensory deficits Eye contact: Present: cooperative, good eye contact Thoughts: Present: normal thought pattern Assessment/Plan Plan Narrative: Slow progress with a bit of backsliding late this afternoon. Will keep NG to suction and hold on orals. - Problems/Diagnosis (1) Partial small bowel obstruction Problem: Acute
[2017-04-21] MEDS: KETOROLAC TROMETHAMINE 15 MG/ML VIAL IV PRN ×2 (01:54→20:50)
[2017-04-21] MEDS: HYDROmorphone HCL 2 MG/ML VIAL IV PRN ×4 (01:55→18:52)
[2017-04-21 05:57] LABS: BUN/Creatinine Ratio 9.9 (9.0-21.6); Carbon Dioxide 26.7 mmol/L (24-32.6); Estimated Creat Clear 63.6; Potassium 3.8 mmol/L (3.4-4.6)
[2017-04-21 05:58] LABS: Anion Gap 11.1 mmol/L (6.8-13.8); Calcium * 8.4 mg/dL (7.9-10.9)
--- NOTE | 2017-04-21 08:28 | PN ---
Subjective - Date and Time Seen Date: 04/21/17 Time: 08:24 Subjective Narrative: Patient is still passing out gas. No BM. afebrile. BP elevated Objective - Review of Systems Generalized/Overall Review: Denies: Chills, Fever Respiratory: Denies: Cough, Shortness of Breath Cardiac: Denies: Chest Pain, Palpitations Abdominal: Denies: Nausea, Vomiting Genitourinary Symptoms: Denies: Urgency, Frequency - Vitals Vitals: Last Vital Signs Temp 36.9 C 04/21/17 06:28 Pulse 62 04/21/17 06:28 Resp 16 04/21/17 06:28 BP 153/67 04/21/17 06:28 Pulse Ox 94 04/21/17 06:28 - Abnormal Lab Findings Abnormal Lab Findings: Abnormal Lab Results 04/21/17 Range/Units 05:45 Random Glucose 148 H (70-110) mg/dL - Exam Constitutional: Present: Alert, Oriented x3, Cooperative ENT Exam: Present: hearing grossly normal Neck: Present: supple Respiratory: Present: normal breath sounds, No rales, No wheezing Cardiovascular/Chest: Present: regular rate, rhythm, no JVD, no murmur Abdomen: Present: soft, tender, hypoactive Extremity: Present: no pedal edema, no calf tenderness Assessment/Plan - Problems/Diagnosis (1) Elevated blood-pressure reading, without diagnosis of hypertension Problem: Acute Narrative: likely due to stress and pain. (2) Abdominal pain Problem: Acute (3) Partial small bowel obstruction Problem: Acute (4) Anxiety Problem: Chronic (5) Depression Problem: Chronic (6) Hypothyroidism Problem: Chronic
[2017-04-21] MEDS ORDERED: CLONIDINE HCL 0.1 MG TABLET PO PRN (08:29)
[2017-04-21] MEDS: PHENOL 180 SPRAY BTL MM PRN ×2 (08:38→18:55)
[2017-04-21] MEDS: HEPARIN SODIUM,PORCINE 5,000 UNITS/ML VIAL SC SCH ×2 (08:38→20:51)
[2017-04-21] MEDS: POTASSIUM CHLORIDE 20 MEQ in DEXTROSE 5%-NORMAL SALINE 990 ML IV SCH ×3 (08:44→18:21)
--- NOTE | 2017-04-21 11:09 | PN ---
Subjective - Date and Time Seen Date: 04/21/17 Time: 11:05 Subjective Narrative: FU PSBO Pain generally is improving with occasional exacerbations. Passed a large amount of flatus twice this AM. Has had NG clamped and is having ice chips. Seems to be tolerating that OK. Objective - Vitals Vitals: Last Vital Signs Temp 36.9 C 04/21/17 10:30 Pulse 66 04/21/17 10:30 Resp 16 04/21/17 10:30 BP 147/90 04/21/17 10:30 Pulse Ox 97 04/21/17 10:30 - Abnormal Lab Findings Abnormal Lab Findings: Abnormal Lab Results 04/21/17 Range/Units 05:45 Random Glucose 148 H (70-110) mg/dL - Exam Constitutional: Present: Alert, Oriented x3, Cooperative, Well developed, Well nourished, No distress ENT Exam: Present: other - NG left nares. Currently clamped. Abdomen: Present: soft, nontender, nondistended, no rebound tenderness. Absent : guarding, rigidity Assessment/Plan Plan Narrative: A: PSBO P: Will start clears for lunch today. - Problems/Diagnosis (1) Partial small bowel obstruction Problem: Acute
[2017-04-22] MEDS: POTASSIUM CHLORIDE 20 MEQ in DEXTROSE 5%-NORMAL SALINE 990 ML IV SCH ×2 (04:16→22:44)
[2017-04-22] MEDS: HEPARIN SODIUM,PORCINE 5,000 UNITS/ML VIAL SC SCH ×2 (08:50→20:57)
--- NOTE | 2017-04-22 08:52 | PN ---
Subjective - Date and Time Seen Date: 04/22/17 Time: 08:49 Subjective Narrative: FU PSBO Tolerated NG clamping for the most part. Tolerated clear liquids. Was placed back to suction for a while overnight for nausea and pain. She is feeling much better. Only has pain when she urinates. Objective - Vitals Vitals: Last Vital Signs Temp 36.6 C 04/22/17 07:40 Pulse 55 L 04/22/17 07:40 Resp 18 04/22/17 07:40 BP 183/84 04/22/17 07:40 Pulse Ox 98 04/22/17 07:40 - Exam Constitutional: Present: Alert, Oriented x3, Cooperative, Well developed, Well nourished, No distress ENT Exam: Present: other - NG left nares is clamped Abdomen: Present: soft, nontender, nondistended Assessment/Plan Plan Narrative: A: Ongoing clinical improvement P: Will DC NG today and keep on clears then advance as tolerated to all-cooked diet. - Problems/Diagnosis (1) Partial small bowel obstruction Problem: Acute
[2017-04-22 11:59] LABS: Urine Bilirubin Negative (NEGATIVE); Urine Ketone Negative (NEGATIVE); Urine Protein Negative (NEGATIVE); Urine Specific Gravity <=1.005 SP.GR. (1.005-1.010)
--- NOTE | 2017-04-22 12:00 | PN ---
Subjective - Date and Time Seen Date: 04/22/17 Time: 11:55 Subjective Narrative: patient's chief complain is foul smelling urine. positive gas , no BM. tolerating clear liquids.. Objective - Review of Systems Generalized/Overall Review: Denies: Chills, Fever Respiratory: Denies: Cough, Shortness of Breath Cardiac: Denies: Chest Pain, Palpitations Abdominal: Denies: Nausea, Vomiting, Abdominal Pain Genitourinary Symptoms: Reports: Other - foul smelling urine. Denies: Urgency, Frequency - Vitals Vitals: Last Vital Signs Temp 36.6 C 04/22/17 10:43 Pulse 62 04/22/17 10:43 Resp 18 04/22/17 10:43 BP 168/76 04/22/17 10:43 Pulse Ox 98 04/22/17 10:43 - Exam Constitutional: Present: Alert, Oriented x3, Cooperative ENT Exam: Present: hearing grossly normal Respiratory: Present: normal breath sounds, No rales, No wheezing Cardiovascular/Chest: Present: regular rate, rhythm, no JVD, no murmur Abdomen: Present: soft, nontender, distended, hypoactive Extremity: Present: no pedal edema, no calf tenderness Assessment/Plan - Problems/Diagnosis (1) Elevated blood-pressure reading, without diagnosis of hypertension Problem: Acute Narrative: continues to be high. will start her on Lisnopril 10 mg PO qd. (2) Abdominal pain Problem: Acute (3) Partial small bowel obstruction Problem: Acute (4) Anxiety Problem: Chronic (5) Depression Problem: Chronic (6) Hypothyroidism Problem: Chronic (7) Foul smelling urine Problem: Acute Narrative: will do UA and UCS if warranted. if positive for UTI, will start antibiotics.
[2017-04-22 12:09] LABS: Urine Appearance Cloudy (CLEAR); Urine Bacteria 3+; Urine Blood 10 /ul (NEGATIVE); Urine Color Yellow; Urine Nitrite Positive (NEGATIVE); Urine RBC 0-5 /hpf (0-5)
[2017-04-22] MEDS: KETOROLAC TROMETHAMINE 15 MG/ML VIAL IV PRN (13:47)
[2017-04-23] MEDS: HEPARIN SODIUM,PORCINE 5,000 UNITS/ML VIAL SC SCH ×2 (08:44→20:13)
--- NOTE | 2017-04-23 08:45 | PN ---
Subjective - Date and Time Seen Date: 04/23/17 Time: 08:41 Subjective Narrative: Still tolerating clear liquids. Positive UTI. Objective - Review of Systems Generalized/Overall Review: Denies: Chills, Fever Respiratory: Denies: Cough, Shortness of Breath Cardiac: Denies: Chest Pain, Palpitations Abdominal: Denies: Nausea, Vomiting, Abdominal Pain Genitourinary Symptoms: Reports: Other - foul smelling urine - Vitals Vitals: Last Vital Signs Temp 37 C 04/23/17 07:41 Pulse 54 L 04/23/17 07:41 Resp 18 04/23/17 07:41 BP 112/73 04/23/17 07:41 Pulse Ox 98 04/23/17 07:41 - Abnormal Lab Findings Abnormal Lab Findings: Abnormal Lab Results 04/22/17 Range/Units 11:53 Urine Blood 10 H (NEGATIVE) /ul Urine Nitrate Positive H (NEGATIVE) Urine Urobilinogen 2.0 H (NORMAL) EU/dl Ur Leukocyte Esterase 75 H (NEGATIVE) /ul Urine WBC 10-25 H (0-5) /hpf Urine Bacteria 3+ H (NONE) - Exam Constitutional: Present: Alert, Oriented x3, Cooperative ENT Exam: Present: hearing grossly normal Neck: Present: supple Respiratory: Present: normal breath sounds, No rales, No wheezing Cardiovascular/Chest: Present: regular rate, rhythm, no JVD, no murmur Abdomen: Present: soft, nontender, other - positive bowel sounds, distended Extremity: Present: no pedal edema, no calf tenderness Assessment/Plan - Problems/Diagnosis (1) Partial small bowel obstruction Problem: Acute Narrative: passing out gas. tolerating clear liquids. will defer it to Dr. Castañeda if he will advance to full liquids. (2) Foul smelling urine Problem: Acute Narrative: positive gram negative bacilli UTI-on IV rocephin (3) Elevated blood-pressure reading, without diagnosis of hypertension Problem: Acute Narrative: BP controlled today (4) Abdominal pain Problem: Resolved (5) Anxiety Problem: Chronic (6) Depression Problem: Chronic (7) Hypothyroidism Problem: Chronic
--- NOTE | 2017-04-23 12:32 | PN ---
Subjective - Date and Time Seen Date: 04/23/17 Time: 12:31 Subjective Narrative: FU PSBO NG is out Tolerating clears Passing flatus UTI with GNRs noted--> Rocephin Objective Objective Narrative: Abdomen is soft, nondistended, nontender - Vitals Vitals: Last Vital Signs Temp 37 C 04/23/17 07:41 Pulse 54 L 04/23/17 07:41 Resp 18 04/23/17 07:41 BP 112/73 04/23/17 07:41 Pulse Ox 98 04/23/17 07:41 Assessment/Plan Plan Narrative: Ongoing improvement. Will advance to All-Cooked Regular diet - Problems/Diagnosis (1) Partial small bowel obstruction Problem: Acute
[2017-04-23] MEDS ORDERED: cefTRIAXone SODIUM 1,000 MG in DEXTROSE 5 % IN WATER 50 ML IV SCH ×2 (21:00)
--- NOTE | 2017-04-24 07:50 | PN ---
Progess Note - Interim Date: 04/24/17 Time: 07:48 Narrative: 04/24/17 07:48 Patient tolerated all cooked food. Positive gas passage. No BM yet. Urine not smelly anymore. growing E. Coli.
[2017-04-24] MEDS ORDERED: ONDANSETRON 4 MG TAB.RAPDIS PO PRN (09:01)
[2017-04-24] MEDS: HEPARIN SODIUM,PORCINE 5,000 UNITS/ML VIAL SC SCH (09:13)
[2017-04-24] MEDS ORDERED: CIPROFLOXACIN HCL 500 MG TABLET PO SCH (10:30)
[2017-04-24] MEDS ORDERED: BISACODYL 5 MG TABLET.DR PO ONE (10:59)
--- NOTE | 2017-04-24 13:51 | DS ---
(1) Partial small bowel obstruction Problem: Resolved (2) Foul smelling urine Diagnosis(s): E.Coli UTI Problem: Resolved (3) Elevated blood-pressure reading, without diagnosis of hypertension Problem: Acute (4) Abdominal pain Problem: Resolved (5) Anxiety Problem: Chronic (6) Depression Problem: Chronic (7) Hypothyroidism Problem: Chronic (8) Constipation Problem: Acute Description of Stay: Carmen Church is a 66-yr-old [place] Pt of Dr. Fatou Castillo with a PMH of: Anxiety, Jimenez's Palsy, Depression, Fibromyalgia, Hypothyroidism, Insomnia, Osteoarthritis and Small Bowel Obstruction who was admitted on for abdominal pain and dry heaving. 3 hours prior to admission, she developed severe lower abdominal pain that was accompanied by dry heaving. She came to the [facility] ER without waiting as she has hx of SBO and the symptoms were similar. She denied fevers, but has had chills since being in the hospital. Her appetite and bowels movements have been normal until 3 hrs [employer]. At the ED, Abdominal X- ray shwed PSBO.The surgeon ( Dr. Soria) was consulted by the ERP on pt's case and he recommended to hold the Abdominal CT scan and for NG tube to be placed in. Laboratory studies were mostly unremarkable. She has had mirza's fundoplication and has had numerous abdominal surgeries involving: cholecystectomy,Appendectomy, Hysterectomy and tubal ligation. 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 She has been hospitalized at least 4 times for SBO, but the last two incidences were managed conservatively. She was admitted and kept NPO and continued with NGT suction , IVF and IV pain medications. She developed fopul smelling urine which grew E. Coli. She was treated with IV rocephin . She was started on clear liquids then progressed to all cooked regular diet by Surgeon. Follow up AXR showed interval resolution of PSBO but with constipation. She was given dulcolax. Dr. Murphy has cleared her for discharge. Procedures Performed: none Discharge Location: Home Disposition: Home self-care Condition: Stable Discharge Activity: Activity as tolerated Discharge Diet: Other - all cooked regular diet Referrals: Fatou Castillo MD [Primary Care Provider] - Additional Patient Instructions (free text): -Please make TCM appointment unless fci discharge. Thank you! Bebe @ [employer] [id number]. Follow up with PCP - Dr. Castillo in 1 week. Prescriptions (Any new or edited meds): Ciprofloxacin HCl [Cipro] 500 mg PO BID #6 tablet Sennosides/Docusate Sodium [Senna-S Tablet] 1 each PO HS #30 tablet Complete Home Medications List: Complete Home Medication List: Citalopram Hydrobromide [Celexa] 40 mg PO DAILY 09/27/12 traMADol HCL [Ultram] 100 mg PO Q48H PRN 06/14/14 Levothyroxine Sodium [Synthroid] 50 mcg PO DAILY 04/26/15 Cyclosporine [Restasis Multidose] 1 drop OP DAILY 01/17/17 Ciprofloxacin HCl [Cipro] 500 mg PO BID #6 tablet 04/24/17 Sennosides/Docusate Sodium [Senna-S Tablet] 1 each PO HS #30 tablet 04/24/17
[2017-04-24 15:02] VITALS: BP 150/68
== END 2017-04-24 15:30 | disposition home or self-care (01) | DRG 389 ==
LOC: ER 16:12 → MS 17:36
PROVIDERS: ADMIT Internal Medicine; ATTEND Internal Medicine
DX: N39.0 Urinary tract infection, site not specified; M79.7 Fibromyalgia; R03.0 Elevated blood-pressure reading, without diagnosis of hypertension; K56.600 Partial intestinal obstruction, unspecified as to cause; Z87.891 Personal history of nicotine dependence; Z91.030 Bee allergy status; E03.9 Hypothyroidism, unspecified; B96.20 Unspecified Escherichia coli [E. coli] as the cause of diseases classified elsewhere; Z88.6 Allergy status to analgesic agent
CPT/HCPCS: 36415; 71045; 74019; 80048; 80053; 81001; 83690; 85025; 87077; 87086; 87186; 96374; 96375; 99285; J2405

== ENCOUNTER 2019-04-19 16:38 | Inpatient (IN) ==
[2019-04-19] MEDS ORDERED: ONDANSETRON HCL/PF 2 MG/ML VIAL IV ONE ×2 (17:00→18:41)
--- NOTE | 2019-04-19 17:29 | ERNOTE ---
<Natalia Hwang - Last Filed: 04/19/19 20:12> Abdominal HPI - General Chief Complaint: Abdominal Pain Time Seen by Provider: 04/19/19 16:56 Source: patient Exam Limitations: no limitations - Immun/Allergies/Home Medications Immunizatons: IMMUNIZATION HX Immunizations Up to Date Yes History of Influenza Vaccine More Information Required Hx Pneumococcal Vaccination Yes Allergies/Adverse Reactions: Allergies venom-honey bee [bee venom (honey bee)] Allergy (Mild, Verified 04/19/19 16:51) Hives morphine Adverse Reaction (Intermediate, Verified 04/19/19 16:51) HALLUCINATIONS sulfadiazine [Sulfadiazine] Adverse Reaction (Mild, Verified 04/19/19 16:51) rash Home Medications: HOME MEDICATIONS nebulizer and supplies 0 .ROUTE .MEDSUPPLY #1 ea 11/05/18 [Last Taken Unknown] duloxetine 60 mg capsule,delayed release 60 mg PO DAILY #30 cap 03/17/19 [Last Taken Unknown] levothyroxine 50 mcg tablet See Rx Instructions .ROUTE .COMPLEX #90 unknown measurement unit code: not specified 03/22/19 [Last Taken Unknown] - History of Present Illness Narrative: Patient started with generalized abdominal pain and vomiting about 2 hours prior to coming here. She has a history of bowel obstructions and symptoms feel very similar, last bowel obstruction about a year ago resolved with conservative treatment Date (Duration): 04/19/19 Time (Timing): 14:00 Timing: constant, getting worse Quality: severe Modifying Factors - (Improves): Absent: analgesics, vomiting Modifying Factors - (Worsens): Absent: breathing, coughing, lying down Associated Symptoms: Present: diaphoresis, nausea, vomiting. Absent: headache, diarrhea-gross blood, diarrhea-mucous, fever/chills, shortness of breath Prior Abdominal Problems: Present: similar symptoms Prior Treatment: Absent: recently seen, currently on antibiotics Review of Systems - Review of Systems Constitutional: Absent: fever, chills ENT: Absent: nose congestion, sore throat Respiratory: Absent: shortness of breath, cough Cardiology: Absent: chest pain Gastrointestinal/Abdominal: Present: See HPI, nausea, vomiting, abdominal pain. Absent: constipation Genitourinary: Absent: frequency, dysuria Musculoskeletal: Absent: back pain Neurological: Absent: headache Medical History (Last Reviewed 04/19/19 @ 20:13 by Natalia Hwang MD) Anxiety disorder (Chronic) Onset Date: Unknown Jimenez's palsy (Resolved) Onset Date: 11/09/15 Depression (Chronic) Onset Date: Unknown Fibromyalgia (Chronic) Onset Date: Unknown Hypothyroidism (Chronic) Onset Date: 06/27/16 Insomnia (Chronic) Onset Date: Unknown Osteoarthritis (Chronic) Onset Date: Unknown Vitamin D deficiency (Chronic) Onset Date: 07/12/13 Vertigo (Acute) Onset Date: Unknown Pneumonia (Acute) Onset Date: Unknown Jimenez's palsy (Chronic) Onset Date: Unknown Coccyx contusion (Acute) Onset Date: Unknown Partial obstruction of small intestine (Acute) Onset Date: Unknown Partial small bowel obstruction (Resolved) Onset Date: Unknown Anxiety (Chronic) Onset Date: Unknown Depression (Chronic) Onset Date: Unknown Hypothyroidism (Chronic) Onset Date: Unknown Fibromyalgia (Chronic) Onset Date: Unknown Viral gastroenteritis (Acute) Onset Date: Unknown SBO (small bowel obstruction) (Acute) Onset Date: Unknown Abdominal pain (Resolved) Onset Date: Unknown Elevated blood-pressure reading, without diagnosis of hypertension (Acute) Onset Date: Unknown Foul smelling urine (Resolved) Onset Date: Unknown Constipation (Acute) Onset Date: Unknown Bronchitis (Inactive) Sinusitis, acute (Inactive) Surgical History: Surgical History (Last Reviewed 04/19/19 @ 20:13 by Natalia Hwang MD) History of appendectomy (Resolved) Onset Date: Unknown History of arthroscopy of right knee (Resolved) Onset Date: 07/01/14 History of bowel resection (Resolved) Onset Date: ~1989 History of cholecystectomy (Resolved) Onset Date: ~1974 History of colonoscopy (Resolved) Onset Date: 01/17/17 History of hysterectomy (Resolved) Onset Date: ~1982 History of tubal ligation (Resolved) Onset Date: ~1976 History of [place] fundoplication (Resolved) Onset Date: ~1994 Family History: Family History (Last Reviewed 04/19/19 @ 16:51 by Viola Ross RN) Father , 71 yrs Myocardial infarction Alcohol abuse Mother , 65 yrs Diabetes Cirrhosis Brother Myocardial infarction COPD (chronic obstructive pulmonary disease) Sister Cancer breast Hypothyroidism Social History: (Last Reviewed 04/19/19 @ 16:51 by Viola Ross RN) Social History: adopted: No foster care: No fpc: No Marital status: Single lives independently: No household members: family number of children: 4 caregiver/support person: No current occupational status: retired current occupation: retired-worked in [employer] business in [employer] Highest education level completed: some college, no degree Service: No Tobacco: Smoking Status: Former smoker Alcohol: alcohol intake: former Substance Use: substance use type: does not use Dietary Habits: caffeine: Yes Type: coffee Exercise: frequency: does not exercise Physical Exam - Physical Exam General Appearance: Present: wd/wn, moderate distress, obese Head Exam: Present: normal inspection Ears, Nose, Throat: Present: normal pharynx Respiratory: Present: no respiratory distress, normal breath sounds, no accessory muscle use, lungs clear Cardiovascular/Chest: Present: regular rate, rhythm, no murmur Gastrointestinal/Abdominal: Present: tenderness - throughout, abnormal bowel sounds - decreased, tympanic in the upper abdomen, distended Extremity Exam: Present: no edema Neurological Exam: Present: alert, oriented, normal mood/affect Skin Exam: Present: normal color, warm/dry Progress - Results and Orders Patient's Lab Results:: I have reviewed the patient's lab results. - Vital Signs Patient's Vital Signs:: I have reviewed the patient's vital signs. Vital Signs: Vital Signs 04/19/19 16:48 Temperature 35.6 C L Pulse Rate 65 Respiratory Rate 20 Blood Pressure 177/117 H O2 Sat by Pulse Oximetry 96 - X-Ray X-Ray #1 X-Ray: abdomen - scattered air fluid levels concerning for bowel obstruction Interpretation: Interp. by me - Progress/Reassessment Chief Complaint: Abdominal Pain Progress Note-Subjective: 04/19/19 17:57 pain better after dilaudid, rates pain at 2/10 discucssed Xray - Transfer of Care Physician Sign Out: Natalia Hwang Receiving Physician: Elvin Clark Pending Results: CT/MRI results Expected Disposition: Admit Departure Clinical Impression: Partial small bowel obstruction - Departure Disposition: Still a patient Condition: Stable <Elvin Clark - Last Filed: 04/20/19 01:36> Abdominal HPI - Immun/Allergies/Home Medications Immunizatons: IMMUNIZATION HX Immunizations Up to Date Yes History of Influenza Vaccine More Information Required Hx Pneumococcal Vaccination Yes Medical History (Last Reviewed 04/19/19 @ 20:13 by Natalia Hwang MD) Anxiety disorder (Chronic) Onset Date: Unknown Jimenez's palsy (Resolved) Onset Date: 11/09/15 Depression (Chronic) Onset Date: Unknown Fibromyalgia (Chronic) Onset Date: Unknown Hypothyroidism (Chronic) Onset Date: 06/27/16 Insomnia (Chronic) Onset Date: Unknown Osteoarthritis (Chronic) Onset Date: Unknown Vitamin D deficiency (Chronic) Onset Date: 07/12/13 Vertigo (Acute) Onset Date: Unknown Pneumonia (Acute) Onset Date: Unknown Jimenez's palsy (Chronic) Onset Date: Unknown Coccyx contusion (Acute) Onset Date: Unknown Partial obstruction of small intestine (Acute) Onset Date: Unknown Partial small bowel obstruction (Resolved) Onset Date: Unknown Anxiety (Chronic) Onset Date: Unknown Depression (Chronic) Onset Date: Unknown Hypothyroidism (Chronic) Onset Date: Unknown Fibromyalgia (Chronic) Onset Date: Unknown Viral gastroenteritis (Acute) Onset Date: Unknown SBO (small bowel obstruction) (Acute) Onset Date: Unknown Abdominal pain (Resolved) Onset Date: Unknown Elevated blood-pressure reading, without diagnosis of hypertension (Acute) Onset Date: Unknown Foul smelling urine (Resolved) Onset Date: Unknown Constipation (Acute) Onset Date: Unknown Bronchitis (Inactive) Sinusitis, acute (Inactive) Surgical History: Surgical History (Last Reviewed 04/19/19 @ 20:13 by Natalia Hwang MD) History of appendectomy (Resolved) Onset Date: Unknown History of arthroscopy of right knee (Resolved) Onset Date: 07/01/14 History of bowel resection (Resolved) Onset Date: ~1989 History of cholecystectomy (Resolved) Onset Date: ~1974 History of colonoscopy (Resolved) Onset Date: 01/17/17 History of hysterectomy (Resolved) Onset Date: ~1982 History of tubal ligation (Resolved) Onset Date: ~1976 History of [place] fundoplication (Resolved) Onset Date: ~1994 Family History: Family History (Last Reviewed 04/19/19 @ 22:58 by Zulma Hassan RN) Father , 71 yrs Myocardial infarction Alcohol abuse Mother , 65 yrs Diabetes Cirrhosis Brother Myocardial infarction COPD (chronic obstructive pulmonary disease) Sister Cancer breast Hypothyroidism Social History: (Last Reviewed 04/19/19 @ 22:58 by Zulma Hassan RN) Social History: adopted: No foster care: No fpc: No Marital status: Single lives independently: No household members: family number of children: 4 caregiver/support person: No current occupational status: retired current occupation: retired-worked in [employer] in [facility] Highest education level completed: some college, no degree Service: No Tobacco: Smoking Status: Former smoker Alcohol: alcohol intake: former Substance Use: substance use type: does not use Dietary Habits: caffeine: Yes Type: coffee Exercise: frequency: does not exercise Physical Exam - Physical Exam General Appearance: Present: wd/wn, alert, mild distress Head Exam: Present: normal inspection Respiratory: Present: no respiratory distress, no accessory muscle use Gastrointestinal/Abdominal: Present: tenderness Extremity Exam: Present: normal inspection, normal range of motion Neurological Exam: Present: alert, oriented, normal mood/affect Progress - Results and Orders Patient's Lab Results:: I have reviewed the patient's lab results. - Vital Signs Patient's Vital Signs:: I have reviewed the patient's vital signs. Vital Signs: Vital Signs 04/19/19 16:48 04/19/19 17:57 04/19/19 18:34 Temperature 35.6 C L Pulse Rate 65 62 66 Respiratory Rate 20 18 14 Blood Pressure 177/117 H 170/80 H 181/87 H O2 Sat by Pulse Oximetry 96 93 97 04/19/19 18:40 04/19/19 18:46 04/19/19 20:03 Temperature Pulse Rate 83 77 72 Respiratory Rate 174 H 14 11 L Blood Pressure 191/79 H O2 Sat by Pulse Oximetry 87 L 92 L 87 L 04/19/19 20:04 04/19/19 20:48 04/19/19 21:03 Temperature Pulse Rate 63 79 84 Respiratory Rate 11 L 12 16 Blood Pressure 191/84 H 180/88 H 165/93 H O2 Sat by Pulse Oximetry 94 92 L 91 L - CT/Ultrasound CT/Ultrasound Narrative: CT abdomen pelvis with contrast. IMPRESSION: Findings suggestive of a partial small bowel obstruction with transition point and decompressed loops of small bowel in the right lower quadrant. Electronically signed by Chani Ramirez D.O.. - Progress/Reassessment Progress:: Improved Progress Note-Subjective: 04/19/19 21:[address] Wheat she is willing to consult on the case. I spoke with Dr. Hyde he is willing to accept the patient for admission. 04/19/19 22:06
[2019-04-19] MEDS: HYDROmorphone HCL 1 MG/ML DISP.SYRIN IV ONE ×2 (17:30→19:04)
[2019-04-19 17:42] LABS: Hemoglobin 16.8 gm/dL (12.5-16.0); Mean Cell Volume 93.6 fl (78-100); Mean Corpuscular Hemoglobin 32.7 pg (27-31); Mean Platelet Volume 9.4 fl (8-12.5); Neutrophil # 4.1 K/mm3 (1.3-6.0); Neutrophil % 47.7 % (42-75.0); Platelet Count 292 K/mm3 (150-450); Red Blood Count 5.13 M/mm3 (4.2-5.4); Red Cell Distribution Width 12.7 % (11.5-14.0); White Blood Count 8.5 K/mm3 (4.0-10.5)
[2019-04-19 17:57] LABS: Albumin * 4.2 gm/dl (3.4-5.0); Anion Gap 17.7 mmol/L (6.8-13.8); BUN/Creatinine Ratio 17.8 (9.0-21.6); Bilirubin, Total 0.5 mg/dL (0.0-1.1); Ca. Corrected For Albumin 9.5 mg/dL (8.4-10.2); Carbon Dioxide 23.4 mmol/L (24-32.6); Potassium 4.1 mmol/L (3.4-4.6); Total Protein 8.5 gm/dL (6.2-8.2)
[2019-04-19] MEDS ORDERED: DIATRIZOATE MEGLUMINE, SODIUM 30 ML BTL PO ONE (17:58)
[2019-04-19] MEDS ORDERED: HYDROmorphone HCL 1 MG/ML DISP.SYRIN IV ONE ×2 (18:58→21:30)
[2019-04-19] MEDS ORDERED: PROCHLORPERAZINE EDISYLATE 5 MG/ML VIAL IV ONE (21:30)
[2019-04-19] MEDS ORDERED: HYDROmorphone HCL 1 MG/ML DISP.SYRIN IV PRN (23:15)
[2019-04-19] MEDS ORDERED: ONDANSETRON HCL/PF 2 MG/ML VIAL IV PRN (23:17)
[2019-04-20] MEDS: NORMAL SALINE 1,000 ML IV PRN ×2 (00:06→14:20)
--- NOTE | 2019-04-20 08:02 | HP ---
Chief Complaint - Chief Complaint Date of Service: 04/20/19 Time of Service: 08:01 Chief Complaint: abdominal pain History of Present Illness: Torri Church is a 68-year-old white female patient of Dr. Castillo with past medical history of episodes of small bowel obstructions fibromyalgia, anxiety and depression, hypothyroidism who was admitted on 04/19/2019 because of abdominal pain, nausea and dry heaves. The patient was her usual self until after drinking high-protein Ensure shake in the morning after which she started having nausea and dry heaves (she is not able to vomit due to her [place] fundoplication) associated with abdominal pain, 10/10, diffuse, crampy in nature. The pain became so severe and so she went to our emergency room where abdominal x-ray showed possible small bowel obstruction. A CT scan of the abdomen was done which showed partial small bowel obstruction with transition point in the right lower quadrant. Her CBC and CMP were essentially within normal limits. She was admitted then for further evaluation and treatment. General surgery was consulted by emergency room department and she will see the patient. 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 In her 20s she had a gallbladder surgery. 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 She has been having small bowel obstructions on and off in the past the last 2 episodes was in February and January of last year. All of them have been treated conservatively. Currently the patient feels very much better and says that she is now had 2 passage of gas and her stomach is starting to rumble. She said she was just started on Cymbalta a month ago for her fibromyalgia and she said that it can cause constipation. Her last bowel movement there was 3 in the morning before her admission. Medical History (Last Reviewed 04/19/19 @ 22:58 by Zulma Hassan RN) Anxiety disorder (Chronic) Onset Date: Unknown Jimenez's palsy (Resolved) Onset Date: 11/09/15 Depression (Chronic) Onset Date: Unknown Fibromyalgia (Chronic) Onset Date: Unknown Hypothyroidism (Chronic) Onset Date: 06/27/16 Insomnia (Chronic) Onset Date: Unknown Osteoarthritis (Chronic) Onset Date: Unknown Vitamin D deficiency (Chronic) Onset Date: 07/12/13 Vertigo (Acute) Onset Date: Unknown Pneumonia (Acute) Onset Date: Unknown Jimenez's palsy (Chronic) Onset Date: Unknown Coccyx contusion (Acute) Onset Date: Unknown Partial obstruction of small intestine (Acute) Onset Date: Unknown Partial small bowel obstruction (Resolved) Onset Date: Unknown Anxiety (Chronic) Onset Date: Unknown Depression (Chronic) Onset Date: Unknown Hypothyroidism (Chronic) Onset Date: Unknown Fibromyalgia (Chronic) Onset Date: Unknown Viral gastroenteritis (Acute) Onset Date: Unknown SBO (small bowel obstruction) (Acute) Onset Date: Unknown Abdominal pain (Acute) Onset Date: Unknown Elevated blood-pressure reading, without diagnosis of hypertension (Acute) Onset Date: Unknown Foul smelling urine (Resolved) Onset Date: Unknown Constipation (Acute) Onset Date: Unknown Bronchitis (Inactive) Sinusitis, acute (Inactive) Surgical History: Surgical History (Last Reviewed 04/19/19 @ 22:58 by Zulma Hassan RN) History of appendectomy (Resolved) Onset Date: Unknown History of arthroscopy of right knee (Resolved) Onset Date: 07/01/14 History of bowel resection (Resolved) Onset Date: ~1989 History of cholecystectomy (Resolved) Onset Date: ~1974 History of colonoscopy (Resolved) Onset Date: 01/17/17 History of hysterectomy (Resolved) Onset Date: ~1982 History of tubal ligation (Resolved) Onset Date: ~1976 History of [place] fundoplication (Resolved) Onset Date: ~1994 Family History: Family History (Last Reviewed 04/19/19 @ 22:58 by Zulma Hassan RN) Father , 71 yrs Myocardial infarction Alcohol abuse Mother , 65 yrs Diabetes Cirrhosis Brother Myocardial infarction COPD (chronic obstructive pulmonary disease) Sister Cancer breast Hypothyroidism Social History: (Last Reviewed 04/19/19 @ 22:58 by Zulma Hassan RN) Social History: adopted: No foster care: No longterm: No Marital status: Single lives independently: No household members: family number of children: 4 caregiver/support person: No current occupational status: retired current occupation: retired-worked in [employer] in [place] Highest education level completed: some college, no degree Service: No Tobacco: Smoking Status: Former smoker Alcohol: alcohol intake: former Substance Use: substance use type: does not use Dietary Habits: caffeine: Yes Type: coffee Exercise: frequency: does not exercise Review Of Systems (GEN) - Review of Systems Generalized/Overall Review: Absent: Weakness, Chills, Fever EENTM: Absent: Blurred Vision Respiratory: Absent: Cough, Shortness of Breath, Orthopnea Cardiac: Absent: Chest Pain, Edema, Palpitations Abdominal: Present: Nausea, Abdominal Pain, Other - dry heaves Genitourinary: Absent: Urgency, Frequency Musculoskeletal: Present: Joint Pain, Muscle Pain - fibromyalgia Neurological: Absent: Headache Skin: Absent: Lesions, Rash Immunizations: IMMUNIZATION HX Immunizations Up to Date Yes History of Influenza Vaccine More Information Required Hx Pneumococcal Vaccination Yes Allergies/Adverse Reactions: Allergies Allergy/AdvReac Type Severity Reaction Status Date / Time venom-honey bee Allergy Mild Hives Verified 04/19/19 16:51 [bee venom (honey bee)] morphine AdvReac Intermediate HALLUCINATI Verified 04/19/19 16:51 ONS sulfadiazine [Sulfadiazine] AdvReac Mild rash Verified 04/19/19 16:51 Home Medications: HOME MEDICATIONS nebulizer and supplies 0 .ROUTE .MEDSUPPLY #1 ea 11/05/18 [Last Taken Unknown] duloxetine 60 mg capsule,delayed release 60 mg PO DAILY #30 cap 03/17/19 [Last Taken Unknown] levothyroxine 50 mcg tablet See Rx Instructions .ROUTE .COMPLEX #90 unknown measurement unit code: not specified 03/22/19 [Last Taken Unknown] Exam - Exam Vital Signs: Vital Signs - Last Taken Temp 36.7 C 04/20/19 03:22 Pulse 66 04/20/19 03:22 Resp 18 04/20/19 03:22 BP 135/70 04/20/19 03:22 Pulse Ox 96 04/20/19 03:22 Diagnostic Studies: Abnormal Lab Results 04/19/19 04/19/19 Range/Units 17:34 17:34 Hgb 16.8 H (12.5-16.0) gm/dL Hct 48.0 H (37.0-47.0) % MCH 32.7 H (27-31) pg Lymphocytes # 3.64 H (1.5-3.5) k/mm3 Carbon Dioxide 23.4 L (24-32.6) mmol/L Anion Gap 17.7 H (6.8-13.8) mmol/L Random Glucose 172 H (70-110) mg/dL ALT 82 H (19-67) U/L Total Protein 8.5 H (6.2-8.2) gm/dL Laboratory Results WBC 8.5 K/mm3 (4.0-10.5) 04/19/19 17:34 RBC 5.13 M/mm3 (4.2-5.4) 04/19/19 17:34 Hgb 16.8 gm/dL (12.5-16.0) H 04/19/19 17:34 Hct 48.0 % (37.0-47.0) H 04/19/19 17:34 MCV 93.6 fl (78-100) 04/19/19 17:34 MCH 32.7 pg (27-31) H 04/19/19 17:34 MCHC 35.0 g/dl (32-36) 04/19/19 17:34 RDW 12.7 % (11.5-14.0) 04/19/19 17:34 Plt Count 292 K/mm3 (150-450) 04/19/19 17:34 MPV 9.4 fl (8-12.5) 04/19/19 17:34 Immature Gran % (Auto) 0.20 % (0.001-0.429) 04/19/19 17:34 Immature Gran # (Auto) 0.02 K/mm3 (0.000-0.0310) 04/19/19 17:34 Neutrophils % 47.7 % (42-75.0) 04/19/19 17:34 Lymphocytes % 42.9 % (20-51) 04/19/19 17:34 Monocytes % 6.5 % (0.0-9) 04/19/19 17:34 Eosinophils % 1.8 % (0.0-3.0) 04/19/19 17:34 Basophils % 0.9 % (0.0-1.0) 04/19/19 17:34 Nucleated RBC % 0.0 k/mm3 (0-1) 04/19/19 17:34 Neutrophils # 4.1 K/mm3 (1.3-6.0) 04/19/19 17:34 Lymphocytes # 3.64 k/mm3 (1.5-3.5) H 04/19/19 17:34 Monocytes # 0.6 k/mm3 (0.0-1.0) 04/19/19 17:34 Eosinophils # 0.2 k/mm3 (0.0-0.7) 04/19/19 17:34 Absolute Basophils 0.1 k/mm3 (0.0-0.1) 04/19/19 17:34 Sodium 137 mmol/L (132-142) 04/19/19 17:34 Plasma Sodium 138 mmol/L (130-142) 04/19/19 17:34 Potassium 4.1 mmol/L (3.4-4.6) 04/19/19 17:34 Chloride 100 mmol/L (97-106) 04/19/19 17:34 Carbon Dioxide 23.4 mmol/L (24-32.6) L 04/19/19 17:34 Anion Gap 17.7 mmol/L (6.8-13.8) H 04/19/19 17:34 BUN 16 mg/dL (3-23) D 04/19/19 17:34 Creatinine 0.90 mg/dL (0.4-1.4) 04/19/19 17:34 Est GFR (Non-Af Amer) 66 mL/min (60-130) 04/19/19 17:34 BUN/Creatinine Ratio 17.8 (9.0-21.6) 04/19/19 17:34 Random Glucose 172 mg/dL (70-110) H 04/19/19 17:34 Calcium 10.0 mg/dL (7.9-10.9) 04/19/19 17:34 Calcium Adj for Albumin 9.5 mg/dL (8.4-10.2) 04/19/19 17:34 Total Bilirubin 0.5 mg/dL (0.0-1.1) 04/19/19 17:34 AST 48 U/L (0-48) 04/19/19 17:34 ALT 82 U/L (19-67) H 04/19/19 17:34 Alkaline Phosphatase 82 U/L (50-170) 04/19/19 17:34 Total Protein 8.5 gm/dL (6.2-8.2) H 04/19/19 17:34 Albumin 4.2 gm/dl (3.4-5.0) 04/19/19 17:34 Assessment/Plan - Narrative Narrative: Carmen was admitted for abdominal pain, nausea and dry heaves and was found to have partial small bowel obstruction. She has been n.p.o. and on IV fluids. She refused NG tube insertion. This morning she is feeling much better with 2 events of passing gas and her stomach she said is starting to rumble. She is no longer nauseous or experiencing dry heaves. General surgery will be seeing the patient as a consult. We will likely start her on clear liquids if okay with general surgery. - Assessment/Plan (1) Abdominal pain Problem: Acute (2) SBO (small bowel obstruction) Assessment: partial Problem: Acute (3) Hypothyroidism Problem: Chronic (4) History of bowel resection Problem: Resolved (5) History of cholecystectomy Problem: Resolved (6) History of [place] fundoplication Problem: Resolved (7) Fibromyalgia Problem: Chronic
--- NOTE | 2019-04-20 09:18 | CONS ---
- Reason for consultation (1) Partial obstruction of small intestine Date of Service: 04/20/19 HPI - General Date of Service: 04/20/19 Narrative: Small bowel obstruction Source: patient Exam Limitations: no limitations - History of Present Illness Initial Comments: Carmen is a pleasant 68-year-old female who developed generalized abdominal pain yesterday. She also developed nausea and vomiting before coming to the emergency room. She has a history of small bowel obstructions and this feels similar to the past. She was admitted to [facility] overnight. Since then she has passed gas 3 times and is feeling much better. She feels like she will have a bowel movement soon. She has a history of multiple surgeries. She feels much better this morning. Timing/Duration: 24 hours Severity: moderate Modifying Factors - (Worsens): Reports: eating Modifying Factors - (Improves): Reports: immobilization Associated Symptoms: nausea, vomiting Allergies/Adverse Reactions: Allergies venom-honey bee [bee venom (honey bee)] Allergy (Mild, Verified 04/19/19 16:51) Hives morphine Adverse Reaction (Intermediate, Verified 04/19/19 16:51) HALLUCINATIONS sulfadiazine [Sulfadiazine] Adverse Reaction (Mild, Verified 04/19/19 16:51) rash Home Medications: Home Medications Medication Instructions Recorded Last Taken nebulizer and supplies 0 .ROUTE .MEDSUPPLY #1 ea 11/05/18 Unknown duloxetine 60 mg capsule,delayed 60 mg PO DAILY #30 cap 03/17/19 Unknown release levothyroxine 50 mcg tablet See Rx Instructions .ROUTE 03/22/19 Unknown .COMPLEX #90 unknown measurement unit code: not specified Procedures Application of splint (05/12/05) Arthroscopy, knee (07/01/14) Colonoscopy (04/09/06) Excision of semilunar cartilage of knee (07/01/14) Insertion of other (naso-)gastric tube (12/21/06) Inspection of Lower Intestinal Tract, Via Natural or Artificial Opening Endoscopic (01/17/17) Local excision of lesion or tissue of bone, femur (07/01/14) Medications - Medications Current Medications: Current Medications Sodium Chloride (Sodium Chloride 0.9%) 1,000 mls @ 100 mls/hr IV .Q10H PRN PRN Reason: HYDRATION Stop: 05/19/19 23:18 Last Admin: 04/20/19 00:06 Dose: 100 mls/hr Documented by: Review of Systems - Review of Systems Generalized/Overall Review: Present: Malaise EENTM: Present: No Symptoms Reported Respiratory: Present: No Symptoms Reported Cardiac: Present: No Symptoms Reported Abdominal: Present: Nausea, Vomiting, Abdominal Pain, Constipation Genitourinary: Present: No Symptoms Reported Musculoskeletal: Present: No Symptoms Reported Neurological: Present: No Symptoms Reported Skin: Present: No Symptoms Reported Endocrine: Present: No Symptoms Reported Physical Examination - Exam Vital Signs: Vital Signs - Last Taken Temp 36.7 C 04/20/19 03:22 Pulse 66 04/20/19 03:22 Resp 18 04/20/19 03:22 BP 135/70 04/20/19 03:22 Pulse Ox 94 04/20/19 08:56 O2 Oxygen Delivery Method Room Air Constitutional: Present: Alert, Oriented x3, Cooperative ENT Exam: Present: hearing grossly normal Eye Exam: bilateral eye: normal inspection Neck: Present: supple Breasts: Present: Exam deferred Respiratory: Present: lungs clear, normal breath sounds, no respiratory distress Cardiovascular/Chest: Present: normal peripheral pulses, no edema Abdomen: Present: soft, nontender, obese /Rectal: Present: Exam deferred Extremity: Present: normal range of motion Skin Exam: Present: normal color 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 as tested Appearance: Present: appropriate appearance, appropriate insight Eye contact: Present: cooperative, good eye contact, normal speech Thoughts: Present: normal thought pattern - Results and Findings: Lab/Microbiology results last 24 hrs: Abnormal/Pending Laboratory Last 24 HRS 04/19/19 04/19/19 17:34 17:34 Hgb 16.8 H Hct 48.0 H MCH 32.7 H Lymphocytes # 3.64 H Carbon Dioxide 23.4 L Anion Gap 17.7 H Random Glucose 172 H ALT 82 H Total Protein 8.5 H - Assessments/Findings (1) Partial obstruction of small intestine Problem: Acute Plan - Plan Plan: Patient has passed gas and feels like she is close to having a bowel movement. Her abdominal pain is much improved. We will start clear liquids. Once she has a bowel movement we can advance her diet as tolerated.
[2019-04-20] MEDS: ENOXAPARIN SODIUM 40 MG/0.4 ML SYRG SC SCH (11:27)
[2019-04-21] MEDS: NORMAL SALINE 1,000 ML IV PRN (00:34)
[2019-04-21 07:14] LABS: Hematocrit 41.8 % (37.0-47.0); Hemoglobin 14.3 gm/dL (12.5-16.0); Mean Cell Volume 96.8 fl (78-100); Mean Corpuscular Hemoglobin 33.1 pg (27-31); Mean Corpuscular Hgb Conc 34.2 g/dl (32-36); Mean Platelet Volume 9.3 fl (8-12.5); Neutrophil # 3.1 K/mm3 (1.3-6.0); Neutrophil % 46.6 % (42-75.0); Platelet Count 208 K/mm3 (150-450); Red Blood Count 4.32 M/mm3 (4.2-5.4); White Blood Count 6.6 K/mm3 (4.0-10.5)
[2019-04-21 07:24] LABS: Anion Gap 11.3 mmol/L (6.8-13.8); BUN/Creatinine Ratio 8.7 (9.0-21.6); Calcium * 8.3 mg/dL (7.9-10.9); Estimated Creat Clear 63.7; Potassium 4.3 mmol/L (3.4-4.6)
--- NOTE | 2019-04-21 09:07 | PN ---
Progess Note - Interim Date: 04/21/19 Time: 09:06 Narrative: 04/21/19 09:06 Had lots of BM overnight. Dr. Solitario has advanced her to mechanical soft diet. Possible discharge this afternoon if w/o problems with advancement of diet.
[2019-04-21] MEDS: ENOXAPARIN SODIUM 40 MG/0.4 ML SYRG SC SCH (10:46)
--- NOTE | 2019-04-21 14:18 | PN ---
Dictated Progress Note - Date and Time Seen: Date: 04/21/19 Time: 14:17 - Progress Note Narrative: doing much better had multiple BMs. abd pain resolved. No n/v. Vital Signs - Last Taken Temp 36.6 C 04/21/19 10:00 Pulse 97 04/21/19 10:00 Resp 16 04/21/19 10:00 BP 177/78 H 04/21/19 10:00 Pulse Ox 97 04/21/19 10:00 Abnormal/Pending Laboratory Last 24 HRS 04/21/19 04/21/19 06:45 06:45 MCH 33.1 H Eosinophils % 3.6 H BUN/Creatinine Ratio 8.7 L Random Glucose 154 H NAD abd soft, non distended, non tender skin warm and dry resp non labored card no edema Imp: resolved SBO Plan: advance diet and dc planning
--- NOTE | 2019-04-21 15:49 | DS ---
(1) Abdominal pain Problem: Resolved (2) SBO (small bowel obstruction) Problem: Resolved (3) Hypothyroidism Problem: Chronic (4) History of bowel resection Problem: Resolved (5) History of cholecystectomy Problem: Resolved (6) History of [place] fundoplication Problem: Resolved (7) Fibromyalgia Problem: Chronic Date of Discharge:: 04/21/19 Hospital Course: Torri Church is a 68-year-old white female patient of Dr. Castillo with past medical history of episodes of small bowel obstructions fibromyalgia, anxiety and depression, hypothyroidism who was admitted on 04/19/2019 because of abdominal pain, nausea and dry heaves. The patient was her usual self until after drinking high-protein Ensure shake in the morning after which she started having nausea and dry heaves (she is not able to vomit due to her [place] fundoplication) associated with abdominal pain, 10/10, diffuse, crampy in nature. The pain became so severe and so she went to our emergency room where abdominal x-ray showed possible small bowel obstruction. A CT scan of the abdomen was done which showed partial small bowel obstruction with transition point in the right lower quadrant. Her CBC and CMP were essentially within normal limits. She was admitted then for further evaluation and treatment. General surgery was consulted by emergency room department and she will see the patient. 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 In her 20s she had a gallbladder surgery. 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 She has been having small bowel obstructions on and off in the past the last 2 episodes was in February and January of last year. All of them have been treated conservatively. Currently the patient feels very much better and says that she is now had 2 passage of gas and her stomach is starting to rumble. She said she was just started on Cymbalta a month ago for her fibromyalgia and she said that it can cause constipation. Her last bowel movement was 3 in the morning before her admission. She was kept n.p.o. and diet was progressed to clear liquids, full liquids, mechanical soft diet today all of which she tolerated. She has had several bowel movements last night. She does not have any nausea, dry heaves, abdominal pain today. She may go home today and follow-up with her primary care physician in 1 week. Procedures Performed: none Results and Findings: Lab Pending Results 04/19/19 17:34: WBC 8.5, RBC 5.13, Hgb 16.8 H, Hct 48.0 H, MCV 93.6, MCH 32.7 H, MCHC 35.0, RDW 12.7, Plt Count 292, MPV 9.4, Immature Gran % (Auto) 0.20, Immature Gran # (Auto) 0.02, Neutrophils % 47.7, Lymphocytes % 42.9, Monocytes % 6.5, Eosinophils % 1.8, Basophils % 0.9, Nucleated RBC % 0.0, Neutrophils # 4.1, Lymphocytes # 3.64 H, Monocytes # 0.6, Eosinophils # 0.2, Absolute Basophils 0.1 04/19/19 17:34: Sodium 137, Plasma Sodium 138, Potassium 4.1, Chloride 100, Carbon Dioxide 23.4 L, Anion Gap 17.7 H, BUN 16 D, Creatinine 0.90, Est GFR (Non-Af Amer) 66, BUN/Creatinine Ratio 17.8, Random Glucose 172 H, Calcium 10.0, Calcium Adj for Albumin 9.5, Total Bilirubin 0.5, AST 48, ALT 82 H, Alkaline Phosphatase 82, Total Protein 8.5 H, Albumin 4.2 04/21/19 06:45: WBC 6.6 D, RBC 4.32, Hgb 14.3, Hct 41.8, MCV 96.8, MCH 33.1 H, MCHC 34.2, RDW 13.0, Plt Count 208, MPV 9.3, Immature Gran % (Auto) 0.20, Immature Gran # (Auto) 0.01, Neutrophils % 46.6, Lymphocytes % 41.1, Monocytes % 7.9, Eosinophils % 3.6 H, Basophils % 0.6, Nucleated RBC % 0.0, Neutrophils # 3.1, Lymphocytes # 2.71, Monocytes # 0.5, Eosinophils # 0.2, Absolute Basophils 0.0 04/21/19 06:45: Sodium 141, Plasma Sodium 142, Potassium 4.3, Chloride 106, Carbon Dioxide 28.0, Anion Gap 11.3, BUN 6 D, Creatinine 0.69, Est GFR (Non-Af Amer) 90 D, BUN/Creatinine Ratio 8.7 L, Random Glucose 154 H, Calcium 8.3 Discharge Location: Home Disposition: Home self-care Condition: Stable Discharge Activity: Activity as tolerated Discharge Diet: [facility] soft, Low Fiber Referrals: Fatou Castillo MD [Primary Care Provider] - Additional Patient Instructions (free text): TCM please. Follow-up with primary care physician in 1 week. Complete Home Medications List: Complete Home Medication List: nebulizer and supplies 0 .ROUTE .MEDSUPPLY #1 ea 11/05/18 duloxetine 60 mg capsule,delayed release 60 mg PO DAILY #30 cap 03/17/19 levothyroxine 50 mcg tablet See Rx Instructions .ROUTE .COMPLEX #90 unknown measurement unit code: not specified 03/22/19
[2019-04-21 16:43] VITALS: BP 148/81
== END 2019-04-21 17:05 | disposition home or self-care (01) | DRG 390 ==
LOC: ER 16:38 → MS 21:54
PROVIDERS: ADMIT Internal Medicine; ATTEND Internal Medicine
CPT/HCPCS: 36415; 74019; 74020; 74177; 80048; 80053; 85025; 96374; 96375; 96376; 99285; J2405; Q9963; Q9967

== ENCOUNTER 2019-07-30 05:13 | Inpatient (IN) ==
--- NOTE | 2019-07-30 05:27 | ERNOTE ---
Abdominal HPI - Narrative Date of Service: 07/30/19 - General Chief Complaint: Abdominal Pain Time Seen by Provider: 07/30/19 05:25 Source: patient Exam Limitations: no limitations - Immun/Allergies/Home Medications Immunizatons: IMMUNIZATION HX Immunizations Up to Date Yes History of Influenza Vaccine Yes Hx Pneumococcal Vaccination No Allergies/Adverse Reactions: Allergies venom-honey bee [bee venom (honey bee)] Allergy (Mild, Verified 07/01/19 12:49) Hives morphine Adverse Reaction (Intermediate, Verified 07/01/19 12:49) HALLUCINATIONS sulfadiazine [Sulfadiazine] Adverse Reaction (Mild, Verified 07/01/19 12:49) rash Home Medications: HOME MEDICATIONS nebulizer and supplies 0 .ROUTE .MEDSUPPLY #1 ea 11/05/18 [Last Taken Unknown] gabapentin 300 mg capsule 300 mg PO DAILY #60 cap 04/29/19 [Last Taken Unknown] levothyroxine 50 mcg tablet See Rx Instructions .ROUTE .COMPLEX #90 unknown measurement unit code: not specified 06/21/19 [Last Taken Unknown] - Pain Score Pain Score #1 Pain Score: 7 Abdominal Pain Onset Location: periumbilical Pain Radiation: periumbilical - History of Present Illness Narrative: 68-year-old female comes ER complaining of periumbilical abdominal pain says she has a bowel obstruction which she has had several times in the past last time was April 2019 she had a last bowel movement sometime last evening and but denies any nausea or vomiting describes the pain is 7 out of 10 Date (Duration): 07/30/19 Time (Timing): 05:32 Timing: getting worse Quality: moderate Activities at Onset: none Modifying Factors - (Improves): Present: analgesics Modifying Factors - (Worsens): Present: movement Associated Symptoms: Present: loss of appetite. Absent: nausea, vomiting Prior Abdominal Problems: Present: similar symptoms Review of Systems - Review of Systems Constitutional: Present: no symptoms reported EYE: Present: no symptoms reported ENT: Present: no symptoms reported Respiratory: Present: no symptoms reported Cardiology: Present: no symptoms reported Gastrointestinal/Abdominal: Present: no symptoms reported Genitourinary: Present: no symptoms reported Musculoskeletal: Present: no symptoms reported Skin: Present: no symptoms reported Neurological: Present: no symptoms reported Endocrine: Present: no symptoms reported Hematologic/Lymphatic: Present: no symptoms reported Psych: Present: no symptoms reported All Other Systems: All systems neg except as marked Medical History (Last Reviewed 07/30/19 @ 05:33 by Rj York MD) Anxiety disorder (Chronic) Onset Date: Unknown Jimenez's palsy (Resolved) Onset Date: 11/09/15 Depression (Chronic) Onset Date: Unknown Fibromyalgia (Chronic) Onset Date: Unknown Hypothyroidism (Chronic) Onset Date: 06/27/16 Insomnia (Chronic) Onset Date: Unknown Osteoarthritis (Chronic) Onset Date: Unknown Vitamin D deficiency (Chronic) Onset Date: 07/12/13 Vertigo (Acute) Onset Date: Unknown Pneumonia (Acute) Onset Date: Unknown Jimenez's palsy (Chronic) Onset Date: Unknown Coccyx contusion (Acute) Onset Date: Unknown Partial obstruction of small intestine (Acute) Onset Date: Unknown Partial small bowel obstruction (Resolved) Onset Date: Unknown Anxiety (Chronic) Onset Date: Unknown Depression (Chronic) Onset Date: Unknown Hypothyroidism (Chronic) Onset Date: Unknown Fibromyalgia (Chronic) Onset Date: Unknown Viral gastroenteritis (Acute) Onset Date: Unknown SBO (small bowel obstruction) (Resolved) Onset Date: Unknown Abdominal pain (Resolved) Onset Date: Unknown Elevated blood-pressure reading, without diagnosis of hypertension (Acute) Onset Date: Unknown Foul smelling urine (Resolved) Onset Date: Unknown Constipation (Acute) Onset Date: Unknown Bronchitis (Inactive) Sinusitis, acute (Inactive) Surgical History: Surgical History (Last Reviewed 07/30/19 @ 05:34 by Rj York MD) History of appendectomy (Resolved) Onset Date: Unknown History of arthroscopy of right knee (Resolved) Onset Date: 07/01/14 History of bowel resection (Resolved) Onset Date: ~1989 History of cholecystectomy (Resolved) Onset Date: ~1974 History of colonoscopy (Resolved) Onset Date: 01/17/17 History of hysterectomy (Resolved) Onset Date: ~1982 History of tubal ligation (Resolved) Onset Date: ~1976 History of [place] fundoplication (Resolved) Onset Date: ~1994 Family History: Family History (Last Reviewed 07/30/19 @ 05:23 by Claudia Weber RN) Father , 71 yrs Myocardial infarction Alcohol abuse Mother , 65 yrs Diabetes Cirrhosis Brother Myocardial infarction COPD (chronic obstructive pulmonary disease) Sister Cancer breast Hypothyroidism Social History: (Last Reviewed 07/30/19 @ 05:23 by Claudia Weber RN) Social History: adopted: No foster care: No group home: No Marital status: Single lives independently: No household members: family number of children: 4 caregiver/support person: No current occupational status: retired current occupation: retired Highest education level completed: some college, no degree Service: No Tobacco: Smoking Status: Former smoker Alcohol: alcohol intake: former Substance Use: substance use type: does not use Dietary Habits: caffeine: Yes Type: coffee Exercise: frequency: does not exercise Physical Exam - Physical Exam General Appearance: Present: wd/wn, alert, moderate distress Head Exam: Present: normal inspection, no evidence of injury Eye Exam: Normal inspection: bilateral Ears, Nose, Throat: Present: normal ENT inspection Neck: Present: normal inspection Respiratory: Present: no respiratory distress Cardiovascular/Chest: Present: regular rate, rhythm Gastrointestinal/Abdominal: Present: nondistended, soft, tenderness, abnormal bowel sounds, distended Back Exam: Present: normal inspection Extremity Exam: Present: normal inspection Neurological Exam: Present: alert, oriented Skin Exam: Present: normal color Lymphatic Exam: Present: no adenopathy Progress - Results and Orders Patient's Lab Results:: I have reviewed the patient's lab results. Results and Orders: Laboratory Tests 07/30/19 06:00 WBC 8.7 RBC 4.77 Hgb 15.9 Hct 45.3 MCV 95.0 MCH 33.3 H MCHC 35.1 RDW 12.5 Plt Count 208 MPV 9.4 Neutrophils % 74.4 Lymphocytes % 17.8 L Laboratory Tests 07/30/19 06:00 Sodium 136 Plasma Sodium 141 Potassium 4.1 Chloride 101 Carbon Dioxide 25.9 Anion Gap 13.2 BUN 14 Creatinine 1.00 Est GFR (Non-Af Amer) 58 L D BUN/Creatinine Ratio 14.0 Random Glucose 392 H Calcium 9.3 Calcium Adj for Albumin 9.3 Total Bilirubin 0.4 AST 38 ALT 74 H Alkaline Phosphatase 98 Total Protein 7.1 Albumin 3.6 - Vital Signs Vital Signs: Vital Signs 07/30/19 05:19 Temperature 36.5 C Pulse Rate 100 Respiratory Rate 16 Blood Pressure 172/79 H O2 Sat by Pulse Oximetry 97 - CT/Ultrasound CT/Ultrasound Narrative: IMPRESSION: 1. Enhanced abdominal pelvis CT again shows some dilated distal small bowel and cecum with contain fluid and liquid fecal content. Apparent transition in the region of the ascending colon suggesting ongoing partial obstruction. Exact etiology uncertain. 2. No indication of perforation or abscess formation. 3. Other additional stable and nonacute findings are discussed above. Electronically signed by Nikunj Braxton MD. Nikunj Braxton MD - Progress/Reassessment Chief Complaint: Abdominal Pain Progress Note-Subjective: 07/30/19 06:40 Patient's blood sugar came back elevated 392 patient states she is not a diabetic Plan - Plan Plan: She has small bowel obstruction as per CAT scan will drop NG tube down medicate for pain and nausea again and admit pending bed search Dr. Demarco consulted and admitted Departure Clinical Impression: Partial obstruction of small intestine, Diabetes mellitus, new onset - Departure Disposition: Short Term Hospital Inpatient Condition: Stable Referrals: Fatou Castillo MD [Primary Care Provider] -
[2019-07-30] MEDS ORDERED: ONDANSETRON HCL/PF 2 MG/ML VIAL IV ONE ×2 (05:37→07:16)
[2019-07-30] MEDS ORDERED: NORMAL SALINE 1,000 ML IV ONE (05:37)
[2019-07-30] MEDS ORDERED: HYDROmorphone HCL 1 MG/ML DISP.SYRIN IV ONE ×2 (05:38→07:22)
[2019-07-30 06:06] LABS: Hematocrit 45.3 % (37.0-47.0); Hemoglobin 15.9 gm/dL (12.5-16.0); Mean Corpuscular Hemoglobin 33.3 pg (27-31); Mean Corpuscular Hgb Conc 35.1 g/dl (32-36); Mean Platelet Volume 9.4 fl (8-12.5); Neutrophil # 6.5 K/mm3 (1.3-6.0); Neutrophil % 74.4 % (42-75.0); Platelet Count 208 K/mm3 (150-450); Red Blood Count 4.77 M/mm3 (4.2-5.4); Red Cell Distribution Width 12.5 % (11.5-14.0); White Blood Count 8.7 K/mm3 (4.0-10.5)
[2019-07-30 06:31] LABS: Albumin * 3.6 gm/dl (3.4-5.0); Anion Gap 13.2 mmol/L (6.8-13.8); Bilirubin, Total 0.4 mg/dL (0.0-1.1); Ca. Corrected For Albumin 9.3 mg/dL (8.4-10.2); Calcium * 9.3 mg/dL (7.9-10.9); Carbon Dioxide 25.9 mmol/L (24-32.6); Potassium 4.1 mmol/L (3.4-4.6); Total Protein 7.1 gm/dL (6.2-8.2)
[2019-07-30] MEDS ORDERED: ONDANSETRON HCL/PF 2 MG/ML VIAL ONE (07:17)
[2019-07-30] MEDS ORDERED: TETRACAINE/BENZOCAINE/BUTAMBEN 56 SPRAY BTL TP ONE (07:22)
[2019-07-30] MEDS ORDERED: ONDANSETRON HCL/PF 2 MG/ML VIAL IV PRN (12:53)
[2019-07-30] MEDS: KETOROLAC TROMETHAMINE 30 MG/ML VIAL IV SCH ×2 (13:15→19:13)
[2019-07-30] MEDS: NORMAL SALINE 1,000 ML IV PRN (13:15)
[2019-07-30] MEDS: PHENOL 180 SPRAY BTL MM PRN (13:17)
--- NOTE | 2019-07-30 23:10 | HP ---
Chief Complaint - Chief Complaint Date of Service: 07/30/19 Time of Service: 12:40 Chief Complaint: Abdominal pain History of Present Illness: Carmen is a 68 yo female who has become very familiar with small bowel obstructions. She reports too many episodes to count. She has had obstruction episodes for the past 10 years secondary to numerous abdominal surgeries including cholecystectomy, hysterectomy, open mirza, and bowel resection for obstruction. She reports several surgeries to remove adhesions causing obstruction. Her last episode of obstruction was 3 months ago and resolved conservatively. She reports yesterday was a normal day. However she awoke at 1am with significant abdominal pain and felt similar to prior obstructions. She oped that it would go away but symptoms continued to worsen. She reports her last bowel movement and flatus was yesterday. She has felt nausea but no emesis. No bloody stools. Medical History (Last Reviewed 07/30/19 @ 08:40 by Dalia Holbrook RN) Anxiety disorder (Chronic) Onset Date: Unknown Jimenez's palsy (Resolved) Onset Date: 11/09/15 Depression (Chronic) Onset Date: Unknown Fibromyalgia (Chronic) Onset Date: Unknown Hypothyroidism (Chronic) Onset Date: 06/27/16 Insomnia (Chronic) Onset Date: Unknown Osteoarthritis (Chronic) Onset Date: Unknown Vitamin D deficiency (Chronic) Onset Date: 07/12/13 Vertigo (Acute) Onset Date: Unknown Pneumonia (Acute) Onset Date: Unknown Jimenez's palsy (Chronic) Onset Date: Unknown Coccyx contusion (Acute) Onset Date: Unknown Partial obstruction of small intestine (Acute) Onset Date: Unknown Partial small bowel obstruction (Resolved) Onset Date: Unknown Anxiety (Chronic) Onset Date: Unknown Depression (Chronic) Onset Date: Unknown Hypothyroidism (Chronic) Onset Date: Unknown Fibromyalgia (Chronic) Onset Date: Unknown Viral gastroenteritis (Acute) Onset Date: Unknown SBO (small bowel obstruction) (Resolved) Onset Date: Unknown Abdominal pain (Resolved) Onset Date: Unknown Elevated blood-pressure reading, without diagnosis of hypertension (Acute) Onset Date: Unknown Foul smelling urine (Resolved) Onset Date: Unknown Constipation (Acute) Onset Date: Unknown Bronchitis (Inactive) Sinusitis, acute (Inactive) Surgical History: Surgical History (Last Reviewed 07/30/19 @ 08:40 by Dalia Holbrook RN) History of appendectomy (Resolved) Onset Date: Unknown History of arthroscopy of right knee (Resolved) Onset Date: 07/01/14 History of bowel resection (Resolved) Onset Date: ~1989 History of cholecystectomy (Resolved) Onset Date: ~1974 History of colonoscopy (Resolved) Onset Date: 01/17/17 History of hysterectomy (Resolved) Onset Date: ~1982 History of tubal ligation (Resolved) Onset Date: ~1976 History of Mirza fundoplication (Resolved) Onset Date: ~1994 Family History: Family History (Last Reviewed 07/30/19 @ 08:40 by Dalia Holbrook RN) Father , 71 yrs Myocardial infarction Alcohol abuse Mother , 65 yrs Diabetes Cirrhosis Brother Myocardial infarction COPD (chronic obstructive pulmonary disease) Sister Cancer breast Hypothyroidism Social History: (Last Reviewed 07/30/19 @ 08:40 by Dalia Holbrook RN) Social History: adopted: No foster care: No intermediate: No Marital status: Single lives independently: No household members: family number of children: 4 caregiver/support person: No current occupational status: retired current occupation: retired Highest education level completed: some college, no degree Service: No Tobacco: Smoking Status: Former smoker Alcohol: alcohol intake: former Substance Use: substance use type: does not use Dietary Habits: caffeine: Yes Type: coffee Exercise: frequency: does not exercise Review Of Systems (GEN) - Review of Systems Generalized/Overall Review: Absent: Weakness, Chills, Fever Respiratory: Absent: Cough, Shortness of Breath Cardiac: Absent: Chest Pain, Edema Abdominal: Present: Nausea, Abdominal Pain. Absent: Vomiting, Hematemesis, Melena, Bright blood from rectum Genitourinary: Absent: Burning, Urgency Immunizations: IMMUNIZATION HX Immunizations Up to Date Yes History of Influenza Vaccine Yes Hx Pneumococcal Vaccination No Allergies/Adverse Reactions: Allergies Allergy/AdvReac Type Severity Reaction Status Date / Time venom-honey bee Allergy Mild Hives Verified 07/30/19 08:41 [bee venom (honey bee)] morphine AdvReac Intermediate HALLUCINATI Verified 07/30/19 08:41 ONS sulfadiazine [Sulfadiazine] AdvReac Mild rash Verified 07/30/19 08:41 Home Medications: HOME MEDICATIONS gabapentin 300 mg capsule 300 mg PO DAILY #60 cap 04/29/19 [Last Taken Unknown] Levothyroxine Sodium [Synthroid] 50 mcg PO DAILY 06/19/20 [Last Taken Unknown] Exam - Exam Vital Signs: Vital Signs - Last Taken Temp 37.0 C 07/30/19 19:18 Pulse 86 07/30/19 19:18 Resp 16 07/30/19 19:18 BP 154/72 H 07/30/19 19:18 Pulse Ox 97 07/30/19 19:18 Constitutional: Present: Alert, Oriented x3, Cooperative ENT Exam: Present: hearing grossly normal Eye Exam: bilateral eye: normal inspection Respiratory: Present: lungs clear, normal breath sounds, no respiratory distress Cardiovascular/Chest: Present: regular rate, rhythm, no edema Peripheral Pulses: radial (R): 2+, radial (L): 2+ Abdomen: Present: soft, tender - diffuse, hypoactive Skin Exam: Present: normal color, warm/dry, no cyanosis Appearance: Present: appropriate appearance, appropriate insight Eye contact: Present: cooperative, good eye contact, normal speech Diagnostic Studies: Abnormal Lab Results 07/30/19 07/30/19 Range/Units 06:00 06:00 MCH 33.3 H (27-31) pg Lymphocytes % 17.8 L (20-51) % Neutrophils # 6.5 H (1.3-6.0) K/mm3 Est GFR (Non-Af Amer) 58 L D (60-130) mL/min Random Glucose 392 H (70-110) mg/dL ALT 74 H (19-67) U/L Laboratory Results WBC 8.7 K/mm3 (4.0-10.5) 07/30/19 06:00 RBC 4.77 M/mm3 (4.2-5.4) 07/30/19 06:00 Hgb 15.9 gm/dL (12.5-16.0) 07/30/19 06:00 Hct 45.3 % (37.0-47.0) 07/30/19 06:00 MCV 95.0 fl (78-100) 07/30/19 06:00 MCH 33.3 pg (27-31) H 07/30/19 06:00 MCHC 35.1 g/dl (32-36) 07/30/19 06:00 RDW 12.5 % (11.5-14.0) 07/30/19 06:00 Plt Count 208 K/mm3 (150-450) 07/30/19 06:00 MPV 9.4 fl (8-12.5) 07/30/19 06:00 Immature Gran % (Auto) 0.20 % (0.001-0.429) 07/30/19 06:00 Immature Gran # (Auto) 0.02 K/mm3 (0.000-0.0310) 07/30/19 06:00 Neutrophils % 74.4 % (42-75.0) 07/30/19 06:00 Lymphocytes % 17.8 % (20-51) L 07/30/19 06:00 Monocytes % 6.2 % (0.0-9) 07/30/19 06:00 Eosinophils % 1.1 % (0.0-3.0) 07/30/19 06:00 Basophils % 0.3 % (0.0-1.0) 07/30/19 06:00 Nucleated RBC % 0.0 k/mm3 (0-1) 07/30/19 06:00 Neutrophils # 6.5 K/mm3 (1.3-6.0) H 07/30/19 06:00 Lymphocytes # 1.55 k/mm3 (1.5-3.5) 07/30/19 06:00 Monocytes # 0.5 k/mm3 (0.0-1.0) 07/30/19 06:00 Eosinophils # 0.1 k/mm3 (0.0-0.7) 07/30/19 06:00 Absolute Basophils 0.0 k/mm3 (0.0-0.1) 07/30/19 06:00 Sodium 136 mmol/L (132-142) 07/30/19 06:00 Plasma Sodium 141 mmol/L (130-142) 07/30/19 06:00 Potassium 4.1 mmol/L (3.4-4.6) 07/30/19 06:00 Chloride 101 mmol/L (97-106) 07/30/19 06:00 Carbon Dioxide 25.9 mmol/L (24-32.6) 07/30/19 06:00 Anion Gap 13.2 mmol/L (6.8-13.8) 07/30/19 06:00 BUN 14 mg/dL (3-23) 07/30/19 06:00 Creatinine 1.00 mg/dL (0.4-1.4) 07/30/19 06:00 Est GFR (Non-Af Amer) 58 mL/min (60-130) L D 07/30/19 06:00 BUN/Creatinine Ratio 14.0 (9.0-21.6) 07/30/19 06:00 Random Glucose 392 mg/dL (70-110) H 07/30/19 06:00 Calcium 9.3 mg/dL (7.9-10.9) 07/30/19 06:00 Calcium Adj for Albumin 9.3 mg/dL (8.4-10.2) 07/30/19 06:00 Total Bilirubin 0.4 mg/dL (0.0-1.1) 07/30/19 06:00 AST 38 U/L (0-48) 07/30/19 06:00 ALT 74 U/L (19-67) H 07/30/19 06:00 Alkaline Phosphatase 98 U/L (50-170) 07/30/19 06:00 Total Protein 7.1 gm/dL (6.2-8.2) 07/30/19 06:00 Albumin 3.6 gm/dl (3.4-5.0) 07/30/19 06:00 Assessment/Plan - Narrative Narrative: Carmen is a 68 yo female with recurrent small obstruction. She has had numerous abdominal surgeries which is the likely cause to her recurrent small bowel obstruction. She will be treated conservatively initially with NG tube placement on low intermittant suction. She will be NPO. Will treat pain to help her relax. She will have anti nausea medicine. Will admit to inpatient status. Expect >2 midnights to treat and monitor. Once improving will need to slowly advance diet. We do not have a general surgeon covering the facility at the moment so if there is concern of surgical need we will need to transfer out. - Assessment/Plan (1) SBO (small bowel obstruction) Problem: Resolved
[2019-07-31] MEDS: KETOROLAC TROMETHAMINE 30 MG/ML VIAL IV SCH ×4 (01:06→19:02)
[2019-07-31] MEDS: NORMAL SALINE 1,000 ML IV PRN ×2 (03:05→16:02)
[2019-07-31] MEDS: PHENOL 180 SPRAY BTL MM PRN ×3 (09:29→18:15)
[2019-07-31] MEDS: HYDROmorphone HCL 1 MG/ML DISP.SYRIN IV PRN (18:11)
[2019-07-31] MEDS ORDERED: hydrALAZINE HCL 20 MG/ML VIAL IV ONE (22:15)
--- NOTE | 2019-07-31 23:15 | PN ---
Subjective - Date and Time Seen Date: 07/31/19 Time: 09:00 Subjective Narrative: Carmen reports feeling better. She denies abdominal pain or nausea. Reports passing gas. She reports her only discomfort is the NG tube in her throat. She was monitored through the day and NG tube was clamped this evening but she began having nausea again. Will place NG back on suction. She remained NPO throughout this time. Objective - Vitals Vitals: Last Vital Signs Temp 37.2 C 07/31/19 19:39 Pulse 89 07/31/19 22:24 Resp 18 07/31/19 19:39 BP 183/87 H 07/31/19 22:35 Pulse Ox 94 07/31/19 19:39 - Exam Constitutional: Present: Alert, Oriented x3, Cooperative ENT Exam: Present: hearing grossly normal Respiratory: Present: lungs clear, normal breath sounds, no respiratory distress Cardiovascular/Chest: Present: regular rate, rhythm, no edema, no murmur Abdomen: Present: Normal bowel sounds, soft, nontender, nondistended, no rebound tenderness Skin Exam: Present: normal color, warm/dry, no cyanosis Appearance: Present: appropriate appearance, appropriate insight Thoughts: Present: normal thought pattern, no apparent hallucination Assessment/Plan Plan Narrative: She had a NG trial of clamping but began having nausea again. Will return NG to suction and remain NPO. Will trial clamping again tomorrow morning and advance diet as tolerated. - Problems/Diagnosis (1) SBO (small bowel obstruction) Problem: Resolved
[2019-08-01] MEDS: KETOROLAC TROMETHAMINE 30 MG/ML VIAL IV SCH ×2 (01:25→10:06)
[2019-08-01] MEDS: NORMAL SALINE 1,000 ML IV PRN ×2 (05:25→19:02)
[2019-08-01] MEDS: PHENOL 180 SPRAY BTL MM PRN ×2 (10:06→14:48)
[2019-08-01] MEDS ORDERED: LIDOCAINE HCL 20 ML UDC MM PRN (14:00)
[2019-08-01] MEDS: HYDROmorphone HCL 1 MG/ML DISP.SYRIN IV PRN (14:44)
--- NOTE | 2019-08-01 23:07 | PN ---
Subjective - Date and Time Seen Date: 08/01/19 Time: 11:00 Subjective Narrative: Carmen reports feeling well today. She did not tolerate clamping of NG yesterday. She reports it was clamped for food and medications and she tolerated this fine. NG remained clamp and this afternoon was removed as she was tolerating clamping and liquid diet well. Her only pain is sore throat from NG. Abdominal xray this morning showed resolved obstruction. Objective - Vitals Vitals: Last Vital Signs Temp 37.0 C 08/01/19 21:00 Pulse 86 08/01/19 21:00 Resp 18 08/01/19 21:00 BP 173/84 H 08/01/19 21:00 Pulse Ox 96 08/01/19 21:00 - Exam Constitutional: Present: Alert, Oriented x3, Cooperative Respiratory: Present: lungs clear, normal breath sounds Cardiovascular/Chest: Present: regular rate, rhythm, no murmur Abdomen: Present: Normal bowel sounds, soft, nontender, nondistended Skin Exam: Present: normal color, warm/dry, no cyanosis Assessment/Plan Plan Narrative: Obstruction appears resolved. NG tube removed and advancing diet as tolerated. Anticipate discharge to home tomorrow. Elevated blood pressure likely stress related. She does not normally have hypertension. Will monitor after NG removed. - Problems/Diagnosis (1) SBO (small bowel obstruction) Problem: Resolved (2) Elevated blood pressure reading Problem: Acute
--- NOTE | 2019-08-02 11:45 | DS ---
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 She was admitted and made NPO and given NG tube on low to intermittant suction. Abdominal xray was monitored and she had trials of clamping. When she was able to tolerate clamping she was trialled on clear liquids and continued to do well. Her NG was removed and diet was advanced. She continued to do well and is ready for home discharge. Throughout hospital course her blood pressure was elevated but she does not have a history of hypertension. I suspect it to be elevated due to pain and stress of this acute hospital visit. Blood pressure has been mildly elevated. I will not start any medications at this time, but she will have it followed as an outpatient. Procedures Performed: none Results and Findings: Lab Pending Results 07/30/19 06:00: WBC 8.7, RBC 4.77, Hgb 15.9, Hct 45.3, MCV 95.0, MCH 33.3 H, MCHC 35.1, RDW 12.5, Plt Count 208, MPV 9.4, Immature Gran % (Auto) 0.20, Immature Gran # (Auto) 0.02, Neutrophils % 74.4, Lymphocytes % 17.8 L, Monocytes % 6.2, Eosinophils % 1.1, Basophils % 0.3, Nucleated RBC % 0.0, Neutrophils # 6.5 H, Lymphocytes # 1.55, Monocytes # 0.5, Eosinophils # 0.1, Absolute Basophils 0.0 07/30/19 06:00: Sodium 136, Plasma Sodium 141, Potassium 4.1, Chloride 101, Carbon Dioxide 25.9, Anion Gap 13.2, BUN 14, Creatinine 1.00, Est GFR (Non-Af Amer) 58 L D, BUN/Creatinine Ratio 14.0, Random Glucose 392 H, Calcium 9.3, Calcium Adj for Albumin 9.3, Total Bilirubin 0.4, AST 38, ALT 74 H, Alkaline Phosphatase 98, Total Protein 7.1, Albumin 3.6 Discharge Location: Home Disposition: Home self-care Condition: Good Discharge Activity: Activity as tolerated Discharge Diet: General/regular food Referrals: Fatou Castillo MD [Primary Care Provider] - One Week (Recheck blood pressure) Problem Oriented Discharge Instructions to Patient/Family: Bowel Obstruction, [id number] Complete Home Medications List: Complete Home Medication List: gabapentin 300 mg capsule 300 mg PO DAILY #60 cap 04/29/19 Levothyroxine Sodium [Synthroid] 50 mcg PO DAILY 07/30/19 Forms: Patient Portal Registration
[2019-08-02 14:05] VITALS: BP 158/92
== END 2019-08-02 13:00 | disposition home or self-care (01) | DRG 390 ==
LOC: ER 05:13 → MS 05:13
PROVIDERS: ADMIT Family Medicine; ATTEND Family Medicine
CPT/HCPCS: 36415; 71010; 71045; 74019; 74020; 74177; 80053; 85025; 96374; 96375; 96376; 99284; 99285; G0378; J2405; Q9967